=== PATIENT | female | born 1985 | race Caucasian/White ===

== ENCOUNTER → 2022-04-30 11:46 | Outpatient (CLI) | payer OTHER, SELFPAY ==
[2022-04-30 13:15] LABS: Add Manual Diff / Slide Review NO; Basophils Absolute Auto 100 /uL (0-100); Basophils Percent Auto 1.2 % (0-2); Eosinophils Absolute Auto 200 /uL (0-450); Eosinophils Percent Auto 2.2 % (2-4); Hematocrit 32.9 % (36-46); Hemoglobin 10.7 g/dL (12.0-16.0); Lymphocytes Absolute Auto 3000 /uL (1100-4500); Lymphocytes Percent Auto 33.7 % (25-40); Mean Corpuscular HGB Conc 32.5 % (30-36); Mean Corpuscular Hemoglobin 25.5 PG (26-34); Mean Corpuscular Volume 78.6 fL (80-100); Monocytes Absolute Auto 700 /uL (0-900); Neutrophils Absolute Auto 4900 /uL (1500-7000); Neutrophils Percent Auto 54.9 % (50-75); Platelet Count 361 X10^3/uL (150-400); Red Blood Cell Count 4.19 X10^6/uL (4.0-5.2); Red Cell Distribution Width 17.2 % (11.6-14.8); White Blood Cell Count 8.9 X10^3/uL (4.5-11.0)
[2022-04-30 13:16] LABS: Alanine Aminotransferase 19 IU/L (<35); Albumin 4.2 g/dL (3.5-5.0); Albumin Globulin Ratio 1.2 (1.0-2.8); Alkaline Phosphatase 76 U/L (38-126); Aspartate Aminotransferase 24 IU/L (14-36); BUN Creatinine Ratio 22.7 (6-22); Bilirubin Total 0.2 mg/dL (0.2-1.3); Blood Urea Nitrogen 15 mg/dL (7-17); Calcium 8.9 mg/dL (8.4-10.2); Carbon Dioxide 26 mmol/L (22-32); Chloride 105 mmol/L (98-107); Estimated Glomerular Filt Rate > 60 mL/min (>60); Globulin 3.4 g/dL (1.7-4.1); Glucose 86 mg/dL (70-100); HEMOLYSIS < 15 (0-50); Potassium 4.4 mmol/L (3.4-5.1); Sodium 138 mmol/L (137-145); Total Protein 7.6 g/dL (6.3-8.2)
[2022-04-30 13:46] LABS: TSH w/ Reflex to FT4 1.31 uIU/mL (0.47-4.68)
[2022-04-30 13:47] LABS: Erythrocyte Sedimentation Rate 15 MM/HR (0-20)
== END ==
PROVIDERS: PCP Family Medicine; Referring Provider Pediatrics; Visit Provider Pediatrics
DX: E66.9 Obesity, unspecified (principal); G56.03 Carpal tunnel syndrome, bilateral upper limbs; M79.641 Pain in right hand; M79.642 Pain in left hand; R53.83 Other fatigue
CPT/HCPCS: 36415; 80053; 84443; 85025; 85651

== ENCOUNTER 2022-11-12 11:18 | Emergency (ER) | payer OTHER, SELFPAY ==
[2022-11-12 12:11] VITALS: BP 155/91; PULSE 90; RESP 16; TEMP 36.3; O2SAT 96; BMI 43.2
[2022-11-12] MEDS: IBUPROFEN 400 MG TABLET 800 MG PO (13:32)
--- NOTE | 2022-11-12 13:50 | ED_ITS ---
HPI - Extremity Problem <Shekhar Lagunas PA-C - Last Filed: 11/12/22 19:46> General Chief complaint: Extremity Problem,Nontraumatic Stated complaint: sent by [facility] RT leg numb ankle to knee/pain/weaknes Time Seen by Provider: 11/12/22 12:33 Source: patient Mode of arrival: Ambulatory History of Present Illness HPI Narrative: This is a 37-year-old female presents emergency department for sciatica like symptoms for the last 2 weeks. She states that she is experiencing pain that begins in her lumbar spine and right buttock area that radiates down her right lower extremity. She denies urinary or bowel incontinence, fevers, saddle paresthesia, but does report intermittent numbness to the right anterior calf. She denies any trauma to the area. Patient states that she was sent [facility] approximately 2 weeks ago where she was given Toradol, prednisone, and muscle relaxants. She states that her pain was somewhat relieved with the prednisone. Related Data Home Medications Medication Instructions Recorded Confirmed MULTIVITAMIN (Multivitamin ##0 01/06/10 05/07/21 -) cyclobenzaprine 10 mg tablet 10 mg PO TID PRN 11/10/22 prednisone 20 mg tablet 60 mg PO DAILY 11/10/22 Previous Rx's Medication Instructions Recorded cyclobenzaprine 10 mg tablet 10 mg PO TID #20 tabs 11/12/22 cyclobenzaprine 10 mg tablet 10 mg PO TID #20 tabs 11/12/22 prednisone 20 mg tablet 20 mg PO BID 7 days #14 tabs 11/12/22 prednisone 20 mg tablet 20 mg PO BID 7 days #14 tabs 11/12/22 Allergies Allergy/AdvReac Type Severity Reaction Status Date / Time acyclovir Allergy difficulty Verified 05/07/21 15:50 breathing codeine Allergy Difficulty Verified 05/07/21 15:50 Breathing latex Allergy rash Verified 05/07/21 15:50 Sulfa (Sulfonamide AdvReac Verified 05/07/21 15:50 Antibiotics) Review of Systems <Shekhar Lagunas PA-C - Last Filed: 11/12/22 19:46> Review of Systems Narrative: GENERAL: Denies chills, fatigue, malaise, fever, sweats. HEENT: Denies sinus pain, ear pain, sore throat, difficulty swallowing, dizziness. RESPIRATORY: Denies dyspnea, cough, wheezing, hemoptysis, sputum. CARDIOVASCULAR: Denies chest pain, palpitations, orthopnea, edema, GASTROINTESTINAL: Denies nausea, vomiting, abdominal pain, diarrhea, constipation, melena. : Denies dysuria, frequency, incontinence, hematuria, urinary retention. MUSCULOSKELETAL: Right lower extremity pain SKIN: Denies rash, skin lesions, or other NEUROLOGIC: Denies weakness, headache, numbness, change in speech, confusion, seizures, incoordination. PSYCHIATRIC: No concerning psychosocial issues. 12 point review of systems is negative except for those stated above Patient History <Shekhar Lagunas PA-C - Last Filed: 11/12/22 19:46> Medical History Abnormal Pap smear of cervix (~2019) Alopecia Bilateral hand pain Carpal tunnel syndrome on both sides Fatigue Obesity Surgical History Anesthesia History of appendectomy History of section Family History Father Diabetes mellitus Hypertension Hyperlipidemia Drug use Grandfather Cancer History of heart disease Hypertension Grandmother Cancer Diabetes mellitus History of heart disease Hypertension Grandfather Cancer Grandmother Stroke Social History Smoking Status: Never smoker Smoking Status: Never smoker Substance Use Type: does not use Exam <Shekhar Lagunas PA-C - Last Filed: 11/12/22 19:46> Narrative Exam Narrative: GENERAL: Well-developed patient, in mild distress. HEAD: Atraumatic. Normocephalic. EYES: Pupils equal round and reactive. Extraocular motions intact. No scleral icterus. No injection or drainage. ENT: Nose without bleeding, purulent drainage. Throat without erythema, tonsillar hypertrophy or exudate. Airway patent. NECK: Trachea midline. Non tender EXTREMITIES: No edema or joint tenderness. BACK: Nontender without deformity or crepitance. No flank tenderness. NEURO: AOx3. SKIN: No rash or erythema of visible areas Initial Vital Signs Initial Vital Signs: Vital Signs Temperature 97.4 F L 11/12/22 12:11 Pulse Rate 90 11/12/22 12:11 Respiratory Rate 16 11/12/22 12:11 Blood Pressure 155/91 H 11/12/22 12:11 Pulse Oximetry 96 11/12/22 12:11 Oxygen Delivery Method Room Air 11/12/22 12:11 <Destinee Nunez DO - Last Filed: 11/13/22 07:45> Initial Vital Signs Initial Vital Signs: Vital Signs Temperature 97.4 F L 11/12/22 12:11 Pulse Rate 90 11/12/22 12:11 Respiratory Rate 16 11/12/22 12:11 Blood Pressure 155/91 H 11/12/22 12:11 Pulse Oximetry 96 11/12/22 12:11 Oxygen Delivery Method Room Air 11/12/22 12:11 Course <Shekhar Lagunas PA-C - Last Filed: 11/12/22 19:46> Orders Ordered: Discontinued Medications Cyclobenzaprine HCl (Cyclobenzaprine 10 Mg Tablet) 10 mg PO NOW ONE Stop: 11/12/22 13:49 Last Admin: 11/12/22 13:57 Dose: 10 mg Documented By: RIZWANA Ibuprofen (Ibuprofen 400 Mg Tablet) 800 mg PO NOW ONE Stop: 11/12/22 13:18 Last Admin: 11/12/22 13:32 Dose: 800 mg Documented By: ZAIN Prednisone (Prednisone 20 Mg Tablet) 40 mg PO NOW ONE Stop: 11/12/22 13:49 Last Admin: 11/12/22 13:57 Dose: 40 mg Documented By: RIZWANA Vital Signs Vital signs: Vital Signs - 8 hr 11/12/22 12:11 Temperature 97.4 F L Pulse Rate 90 Respiratory Rate 16 Blood Pressure 155/91 H Pulse Oximetry 96 Oxygen Delivery Method Room Air <Destinee Nunez DO - Last Filed: 11/13/22 07:45> Orders Ordered: Discontinued Medications Cyclobenzaprine HCl (Cyclobenzaprine 10 Mg Tablet) 10 mg PO NOW ONE Stop: 11/12/22 13:49 Last Admin: 11/12/22 13:57 Dose: 10 mg Documented By: RIZWANA Ibuprofen (Ibuprofen 400 Mg Tablet) 800 mg PO NOW ONE Stop: 11/12/22 13:18 Last Admin: 11/12/22 13:32 Dose: 800 mg Documented By: ZAIN Prednisone (Prednisone 20 Mg Tablet) 40 mg PO NOW ONE Stop: 11/12/22 13:49 Last Admin: 11/12/22 13:57 Dose: 40 mg Documented By: RIZWANA Vital Signs Vital signs: Vital Signs - 8 hr 11/12/22 12:11 Temperature 97.4 F L Pulse Rate 90 Respiratory Rate 16 Blood Pressure 155/91 H Pulse Oximetry 96 Oxygen Delivery Method Room Air MDM - Extremity (Nontraumatic) <Shekhar Lagunas PA-C - Last Filed: 11/12/22 19:46> Lab Data Labs: Lab Results 11/12/22 Range/Units 13:13 Urine RBC >100/hpf H (0-5/HPF) Urine WBC 1-5/hpf (0-5/HPF) Ur Squamous Epith Cells None seen (0-5/HPF) Urine Bacteria None seen (None) Ur Culture Indicated? Specimen cultured Point of Care Testing Test Results Negative Urine Dip Bedside Urine Glucose Negative Bedside Urine Bilirubin - Negative Bedside Urine Ketone - Negative Urine Specific [place] 1.030 Bedside Urine Occult Blood +++ Bedside Urine pH 5.5 Bedside Urine Protein ++ 100 Bedside Urine Urobilinogen - Negative Bedside Urine Nitrite - Negative Bedside Urine Leukocytes + 70 Esterase MDM Narrative Medical decision making narrative: MDM * differential diagnosis includes but not limited to sciatica , vertebral fracture, right lower extremity fracture, DVT, lumbar strain, spinal cord injury * Prior records reviewed: Patient was seen in the the walk-in clinic just prior to arrival and was sent here for further evaluation. * My lab interpretation: None obtained * My imgaing interpretation: None obtained * Clinical Decision Rules/Scores evaluated: None * Independent discussions with: None ED Course: This is a 37-year-old female presents to the emergency department due to a suspected sciatica. Patient does not report any saddle paresthesia, urinary or bowel incontinence, fevers, or any other concerning signs or symptoms that would necessitate further advanced imaging. Advised patient to follow up with the primary care provider at her scheduled appointment next week for possible advanced imaging. Patient will be given prednisone as she states that this helped with her previous flare-up, as well as muscle relaxants. Patient is also given ibuprofen here in the emergency department. Patient does not express any symptoms concerning for any kind of central spinal cord impingement or damage. No trauma and no need for any x-rays. Discussed possible gabapentin as well as Toradol but patient declined both. Shared Decision Making: Discussed plan with patient who is agreeable with plan for outpatient follow-up Social Considerations: Patient has not established PCP Disposition: Discharged to home <Destinee Nunez DO - Last Filed: 11/13/22 07:45> Lab Data Labs: Lab Results 11/12/22 Range/Units 13:13 Urine RBC >100/hpf H (0-5/HPF) Urine WBC 1-5/hpf (0-5/HPF) Ur Squamous Epith Cells None seen (0-5/HPF) Urine Bacteria None seen (None) Ur Culture Indicated? Specimen cultured Point of Care Testing Test Results Negative Urine Dip Bedside Urine Glucose Negative Bedside Urine Bilirubin - Negative Bedside Urine Ketone - Negative Urine Specific [place] 1.030 Bedside Urine Occult Blood +++ Bedside Urine pH 5.5 Bedside Urine Protein ++ 100 Bedside Urine Urobilinogen - Negative Bedside Urine Nitrite - Negative Bedside Urine Leukocytes + 70 Esterase Discharge Plan Departure Patient Disposition: Home Clinical Impression: Sciatica Instructions: DI for Sciatica, DI for Back Pain With Sciatica Activity Restrictions/Additional Instructions: Thank you for coming to the [facility] Emergency Department today. As we discussed I recommend that he follow up with the primary care provider as they are the best people to order any possible advanced imaging lb the best long-term people help treat your symptoms. I hope the prednisone and muscle relaxants help. I hope you feel better soon. Prescriptions: New prednisone 20 mg tablet 20 mg PO BID 7 Days Qty: 14 0RF cyclobenzaprine 10 mg tablet 10 mg PO TID Qty: 20 0RF cyclobenzaprine 10 mg tablet 10 mg PO TID Qty: 20 0RF prednisone 20 mg tablet 20 mg PO BID 7 Days Qty: 14 0RF No Action MULTIVITAMIN (Multivitamin -) Qty: 0 cyclobenzaprine 10 mg tablet 10 mg PO TID PRN prednisone 20 mg tablet 60 mg PO DAILY Referrals: Lucas Quinn MD [Primary Care Provider] - Stand Alone Forms: Patient Portal/API <Destinee Nunez, - Last Filed: 11/13/22 07:45> Cosign ED Attending Chadature Attestation: I was immediately available in the department for consultation. Documentation has been reviewed.
[2022-11-12] MEDS: CYCLOBENZAPRINE 10 MG TABLET PO (13:57)
[2022-11-12] MEDS: predniSONE 20 MG TABLET 40 MG PO (13:57)
[2022-11-12 14:09] LABS: Bacteria Urine None Seen; Culture Indicated Urine Specimen Cultured; RBC Urine >100/HPF (0-5/HPF); Squamous Epithelial Cell Urine None Seen (0-5/HPF); WBC Urine 1-5/HPF (0-5/HPF)
== END 2022-11-12 14:16 | disposition home or self-care (01) ==
PROVIDERS: Emergency Medicine; Emergency Provider Physician Assistant Medical; PCP Family Medicine
DX: M54.31 Sciatica, right side (principal)
CPT/HCPCS: 81003; 81015; 81025; 87086; 99283

== ENCOUNTER → 2022-11-17 15:26 | Outpatient (CLI) | payer OTHER, SELFPAY ==
--- NOTE | 2022-11-17 15:27 | DI.RAD.S_ITS ---
PROCEDURE: XR LUMBAR SPINE 2-3V INDICATIONS: pain, sciatica TECHNIQUE: 3 views of the lumbar spine were acquired. COMPARISON: None. FINDINGS: Bones: 5 [id number] vertebrae are present. No significant curvature of the lumbar spine. 5 mm anterolisthesis L5 on S1, possible pars defects at this level. 4 mm retrolisthesis L4 on L5. No vertebral body compression fractures. Moderate multilevel degenerative changes with disc height loss, endplate spurring, and facet arthropathy. Soft tissues: Overlying bowel gas pattern is normal. No suspicious soft tissue calcifications. IMPRESSION: Multilevel degenerative changes of the lumbar spine. Dictated by: Memo Suazo M.D. on 11/17/2022 at 19:25 Approved by: Memo Suazo M.D. on 11/17/2022 at 19:27
== END ==
PROVIDERS: PCP Family Medicine; Referring Provider Nurse Practitioner Family; Visit Provider Nurse Practitioner Family
DX: M47.816 Spondylosis without myelopathy or radiculopathy, lumbar region (principal); M54.30 Sciatica, unspecified side
CPT/HCPCS: 72100

== ENCOUNTER → 2022-11-29 14:30 | Outpatient (CLI) | payer OTHER, SELFPAY ==
--- NOTE | 2022-11-29 | DI.US.S_ITS ---
PROCEDURE: US PERIPH VENOUS LOW EXTREM RT INDICATIONS: EDEMA TECHNIQUE: Real-time imaging, as well as color and pulse Doppler interrogation, were performed of the lower extremity deep veins from the inguinal ligament to the popliteal fossa. COMPARISON: None. FINDINGS: The common femoral, femoral and popliteal veins are normally compressible, and free of intraluminal thrombus. Color and pulse Doppler demonstrate normal phasic intraluminal flow. There is normal augmentation response to distal compression maneuver. IMPRESSION: Negative for deep venous thrombosis. Dictated by: Declan Stewart M.D. on 11/30/2022 at 15:35 Approved by: Declan Stewart M.D. on 11/30/2022 at 15:35
== END ==
PROVIDERS: Family Provider Family Medicine; PCP Family Medicine; Referring Provider Family Medicine; Visit Provider Family Medicine
DX: R60.0 Localized edema (principal); I83.90 Asymptomatic varicose veins of unspecified lower extremity; R20.0 Anesthesia of skin
CPT/HCPCS: 93971

== ENCOUNTER → 2022-12-07 18:35 | Outpatient (CLI) | payer OTHER, SELFPAY ==
--- NOTE | 2022-12-07 18:37 | DI.MRI.S_ITS ---
PROCEDURE: MR LUMBAR SPINE WO CON INDICATIONS: Increasing TECHNIQUE: Noncontrast sagittal T1 spin echo and T2 fast echo, sagittal STIR, and T2 fast spin echo through the lumbar spine. In cases with scoliosis, additional coronal T2 fast spin echo may be performed. COMPARISON: None. FINDINGS: Image quality: Excellent. Alignment and Curvature: There is normal bony alignment. Bone Marrow: There is T2 intermediate signal in the inferior endplate of L3 and superior endplate of L4. Spinal Cord: Conus medullaris terminates at the L1-2 level. Visualized cord demonstrates normal signal and size. Paraspinous Soft Tissues: No paravertebral masses. T12-L1: Moderate disc height loss. L1-L2: Normal appearance. L2-L3: Normal appearance. L3-L4: Mild disc height loss. Right subarticular disc extrusion resulting in severe spinal canal narrowing. This contacts the right-sided exiting nerve at the L4-5 neural foramen. L4-L5: Broad-based disc bulge. Annular fissure. L5-S1: Broad-based disc bulge. IMPRESSION: Right subarticular disc extrusion resulting in severe spinal canal narrowing at L3-4. This contacts the right-sided exiting nerve at the L4-5 neural foramen. Dictated by: Hunter Kumar M.D. on 12/08/2022 at 9:41 Approved by: Hunter Kumar M.D. on 12/08/2022 at 9:47
== END ==
PROVIDERS: Family Provider Family Medicine; PCP Family Medicine; Referring Provider Family Medicine; Visit Provider Family Medicine
DX: M51.26 Other intervertebral disc displacement, lumbar region (principal); R60.0 Localized edema; R20.0 Anesthesia of skin; R29.898 Other symptoms and signs involving the musculoskeletal system
CPT/HCPCS: 72148

== ENCOUNTER 2022-12-08 10:30 | Outpatient (RCR) | payer OTHER, SELFPAY ==
--- NOTE | 2022-12-06 15:53 | PT.OIE ---
Current Diagnoses Sciatica, unspecified side (12/06/22) Past Medical History (Last Updated 11/29/22 @ 14:21 by Robert Robles DO) Abnormal Pap smear of cervix (~2019) Alopecia Bilateral hand pain Carpal tunnel syndrome on both sides Fatigue Leg edema, right Obesity Right leg numbness Varicose vein of leg Weakness of right lower extremity Past Surgical History (Last Reviewed 11/12/22 @ 11:17 by IVONNE Ortiz) Anesthesia History of appendectomy History of section Visit Care Team Role Provider Type Lucas Quinn MD Family Provider Physician Primary Care Provider Specialty: Family Practice Address: [address] [place] [address] Email: [email or web address] IVONNE Cowart Attending Provider Advanced Felled Seam Operator Referring Provider Specialty: Medical Address: [address] [place] [address], [facility] Email: [email or web address] Physical Therapy Initial Evaluation PT-OP-A Visit Information Start: 11/29/22 10:46 Freq: Status: Active Protocol: Document 12/06/22 16:07 [facility] (Rec: 12/06/22 17:01 [facility] [id number]) Out-Patient Physical Therapy Visit Information Visit Information Visit Type Initial Evaluation Visit Start Time 16:06 Visit Stop Time 16:49 Total Visit Minutes 43 Visit Number 1 Number of MEDICAL RECEPTION Visits 0 PT-OP-B Current Condition Start: 11/29/22 10:46 Freq: Status: Active Protocol: Document 12/06/22 16:07 [facility] (Rec: 12/06/22 17:01 [facility] [id number]) Current Condition History of Current Condition Current Complaints R leg pain History of Current Condition Pt reports mostly having leg pain and has no injury. 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 A little bit ago(about 8 weeks ago), her back went out and she rested and it got better on R side. She still had to work so was still working. It got hurt again a week later and she worked through it and took motrin then R leg pain started . What started was R leg being numb in ant med knee to ankle and has spread to a little bit post. She has pain in deep pain in ant thigh and down into ant leg and it is the wrost in ant leblanc. this is the 5th week of this. Seh is in less pain but numbness has not imrpoved. She has not had any steroids, motrin or tylenol for 4 days but today had to take a steroid. Pt got prescribed 20mg twice a day but only took it as need. She didn't take the entire weeks worth but was on round the clock tylenol and motrin. Have only had motrin once until today. Pt reports R buttocks pain. She thinks the first time her back went out was at 24 when CG then gave up CG d/t kept pulling her back. Prior to this, she would throw her back out about once a year but not constant. notes R leg is weaker and has to do stairs step to and sometimes r leg gives out. Notes she can't hyperext. Prior Treatments and Tests Xray FINDINGS: Bones: 5 [id number] vertebrae are present. No significant curvature of the lumbar spine. 5 mm anterolisthesis L5 on S1, possible pars defects at this level. 4 mm retrolisthesis L4 on L5. No vertebral body compression fractures. Moderate multilevel degenerative changes with disc height loss, endplate spurring, and facet arthropathy. Soft tissues: Overlying bowel gas pattern is normal. No suspicious soft tissue calcifications. R US for DVT: neg Has done massage: has not helped-one massage inc pain ; chiropactor: 1-2x/wk for 3 weeks and no help Treatment Goals Patient/Caregiver Goals be able to put on shoe comfortably; go up/down stairs recip w/o rail PT-OP-C Subjective Start: 11/29/22 10:46 Freq: Status: Active Protocol: Document 12/06/22 16:07 [facility] (Rec: 12/06/22 17:01 [facility] [id number]) Patient Questionnaires Lower Extremity Functional Scale LEFS Score 47/80 OP-PT Pain Assessment Location R leg pain Pain Location Details ant thigh to leblanc; R glute Description Aching Frequency Constant Radiating Location numbness ant med leblanc Variations/Patterns hard to get off ground Pain Aggravating Factors Sitting,Stair Climbing,Bending Other Pain Aggravating Factors unsure (sometimes fine, sometimes not); put on shoes Pain Alleviating Factors Heat,Medication PT-OP-D Balance Start: 11/29/22 10:46 Freq: Status: Active Protocol: Document 12/06/22 16:07 [facility] (Rec: 12/06/22 17:01 [facility] [id number]) Balance Tests Single Limb Standing Single Limb- Right lat lean w/R hip shear; 9 sec Single Limb- Left lat lean 16 sec PT-OP-F Manual Assessment Start: 11/29/22 10:46 Freq: Status: Active Protocol: Document 12/06/22 16:07 [facility] (Rec: 12/06/22 17:01 [facility] [id number]) Manual Assessments Soft Tissue Assessment Soft Tissue Mobility Assessment tenderness to R glutes, piriformis, hip flexor, quads, adductors Joint Mobility Assessment Joint Mobility Assessment R greater trochanter mild higher; R iliac crest higher PT-OP-G Mobility & Gait Start: 11/29/22 10:46 Freq: Status: Active Protocol: Document 12/06/22 16:07 [facility] (Rec: 12/06/22 17:01 [facility] [id number]) OP Gait Assessment Comments Gait Comments Rotation of pelvis R w/push off; dec R shoulder swing PT-OP-J Posture/Palpation/Skin Start: 11/29/22 10:46 Freq: Status: Active Protocol: Document 12/06/22 16:07 [facility] (Rec: 12/06/22 17:01 [facility] [id number]) Posture Evaluation [facility] Postural Classification System Erin Postural Classifications Posterior/Posterior Vertebral Compression Test 0 Elbow Flexion Test 0 Lumbar Protective Mechanism Left AP 1 Lumbar Protective Mechanism Right AP 0 Lumbar Protective Mechanism Left PA 1 Lumbar Protective Mechanism Right PA 1 Comments Posture Comments pt has excessive lordosis & inc kyphosis PT-OP-L Special Tests Start: 11/29/22 10:46 Freq: Status: Active Protocol: Document 12/06/22 16:07 [facility] (Rec: 12/06/22 17:01 [facility] [id number]) Special Tests Lumbar Spine Special Tests Straight Leg Raise Test Results positive R Slump Comments no dural tesion; B neural tension & w/L pinching and pull at L3 Other Special Tests Special Tests patellar tendon reflexs R:1 L: 1 achilles R: 1L:1 PT-OP-M Strength Start: 11/29/22 10:46 Freq: Status: Active Protocol: Document 12/06/22 16:07 [facility] (Rec: 12/06/22 17:01 [facility] [id number]) Hip Strength Hip Manual Muscle Testing Right Flexion (L2) 3+ Fair+ Extension (S1) 3 Fair Abduction 4- Good- Adduction 5 Normal External Rotation 3+ Fair+ Internal Rotation 3+ Fair+ Left Flexion (L2) 5 Normal Extension (S1) 5 Normal Abduction 4+ Good+ Adduction 5 Normal External Rotation 5 Normal Internal Rotation 5 Normal Knee Strength Knee Manual Muscle Testing Right Flexion (S2) 4- Good- Extension (L3) 4- Good- Left Flexion (S2) 5 Normal Extension (L3) 5 Normal Ankle/Foot Strength Ankle and Foot Manual Muscle Testing Right Dorsiflexion (L4) 5 Normal Plantarflexion (S1) 4+ Good+ Comments 16 heel raises but major calf soreness Left Dorsiflexion (L4) 5 Normal Plantarflexion (S1) 5 Normal Comments 20 heel raises PT-OP-Q Treatments Start: 11/29/22 10:46 Freq: Status: Active Protocol: Document 12/06/22 16:07 [facility] (Rec: 12/06/22 17:01 [facility] [id number]) Therapeutic Exercises Supine Exercises breathing Supine Exercise Name diaphragmatic Reps/Minutes 5 pelvic tilt Reps/Minutes 5 Self-Care/Home Management Treatment Education Patient Education Home Exercise Program Other Education 9 min: discussed what the exercises are for and educated pt on performance w/PT demo. Pt educated on dermatome map and PT informed pt that pt has MRI that was ordered so it would be good to get that completed to have a more complete picture of her spine. Edu of how PT can help and discussed posture. PT-OP-T Assessment and Plan Start: 11/29/22 10:46 Freq: Status: Active Protocol: Document 12/06/22 16:07 [facility] (Rec: 12/06/22 17:01 [facility] [id number]) Physical Therapy Assessment Rehab Potential Rehabilitation Potential Good Evaluation Complexity Number of Personal Factors/Comorbidities 3 or More Number of Body Systems Impaired 4 or More Clinical Presentation at Evaluation Evolving Impairments Impairments Activity Tolerance,Balance, Functional Activities, Functional Mobility,Gait,Pain, Posture,ROM,Soft Tissue Mobility,Strength Goals posture Short Term Goal (STG) Pt will score at least 2/5 on VCT to show improved postural alignment. STG Duration 01/20/23 Rn Otolaryngology Goal (LTG) Pt will score at least 4/5 on VCT to show improved postural alignment. LTG Duration 02/28/23 strength Short Term Goal (STG) Pt will be indep w/stretching, blance and strength HEP STG Duration 01/20/23 Detention Goal (LTG) Pt will score at least 4+/5 w/ all MMT and at least 3/5 LPM & EFT in order to show improved stability to inc pt ability to participate in her typical day w/o inc pain. LTG Duration 02/28/23 activties Short Term Goal (STG) Pt will be able to don/doff shoes w/o inc pain or difficulty. STG Duration 01/20/23 Rn Otolaryngology Goal (LTG) Pt will be able to ascend and descend stairs reciprocally while carrying things as needed for job LTG Duration 02/28/23 LEFS Impairment 47/80 Short Term Goal (STG) Pt will improve score to at least 58/80 to show improved functional ability. STG Duration 01/20/23 Detention Goal (LTG) Pt will improve score to at least 68/80 to show improved functional ability. LTG Duration 02/28/23 Assessment Summary Assessment Pt presents with R ant med leg pain that goes to her ankle and R glute pain with numbness in ant lower leg. She had an xray showing anterolisthesis of 5mm of L5 on S1 and retrolisthesis 4m on L4-L5 w/ some disc height loss and degenerative changes but is awaiting a MRI. She has history of back injuries for over 10 years having back go out once a year or so d/t her jobs. 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 She has noted dec pain overall, but numbness has not changed. She has significant RLE weakness w /notable difficulty bending to put on shoes and weakness w/ stairs. Pt does have notable neural tension w/Slump and SLR testing and notes changes around L3-4 dermatome pattern. MRI will give further information re: pt condition and pt may require referral to other specialists. She does have significant lordosis and poor core stabilty and would benefit from skilled PT to imrpove alignment and posture along w/stability in order to improve pt movement patterns to dec pain. Physical Therapy Plan Frequency and Duration Frequency of Treatment 2x/wk 3wk; 1x/wk 9wk Duration of treatment (weeks) 12 Plan of Care Start Date 12/06/22 Plan of Care End Date 02/28/23 Therapeutic Interventions Therapeutic Interventions Balance Training,Gait Training ,Home Exercise Program,Joint Mobilizations,Manual Therapy, Neuromuscular Re-education, Patient/Caregiver Education, Self-Care/Home Management,Soft Tissue Mobilization,Taping, Therapeutic Activities, Therapeutic Exercises Next Visit Focus/Plan Next Note Type Treatment Note Next Visit Plan lumbar ROM testing; hip jt mobs, innominate mobs & sacral mobs, STM to glutes & LEs, HEP: review exercises, hip stretches prn, tennis ball to glutes & rolling pin to quads, supine marches & BKFOs
--- NOTE | 2022-12-06 17:53 | PT.OPPOC ---
Physical, Occupational & Speech Therapy At [facility] Current Diagnoses Sciatica, unspecified side (12/06/22) Visit Care Team Role Provider Type Lucas Quinn MD Family Provider Physician Primary Care Provider Specialty: Family Practice Address: [address] [place] [address], [id number] Email: [email or web address] Cowart Attending Provider Advanced Cookie Mixer Helper Referring Provider Specialty: Medical Address: [address] [place] [address], [id number] Email: [email or web address] Plan Of Care PT-OP-T Assessment and Plan Start: 11/29/22 10:46 Freq: Status: Active Protocol: Document 12/06/22 16:07 [facility] (Rec: 12/06/22 17:01 [facility] [id number]) Physical Therapy Assessment Rehab Potential Rehabilitation Potential Good Evaluation Complexity Number of Personal Factors/Comorbidities 3 or More Number of Body Systems Impaired 4 or More Clinical Presentation at Evaluation Evolving Impairments Impairments Activity Tolerance,Balance, Functional Activities, Functional Mobility,Gait,Pain, Posture,ROM,Soft Tissue Mobility,Strength Goals posture Short Term Goal (STG) Pt will score at least 2/5 [address] VCT to show improved postural alignment. STG Duration 01/20/23 Associate Financial Analyst Goal (LTG) Pt will score at least 4/5 on VCT to show improved postural alignment. LTG Duration 02/28/23 strength Short Term Goal (STG) Pt will be indep w/stretching, blance and strength HEP STG Duration 01/20/23 Associate Financial Analyst Goal (LTG) Pt will score at least 4+/5 w/ all MMT and at least 3/5 LPM & EFT in order to show improved stability to inc pt ability to participate in her typical day w/o inc pain. LTG Duration 02/28/23 activties Short Term Goal (STG) Pt will be able to don/doff shoes w/o inc pain or difficulty. STG Duration 01/20/23 Halfway Goal (LTG) Pt will be able to ascend and descend stairs reciprocally while carrying things as needed for job LTG Duration 02/28/23 LEFS Impairment 47/80 Short Term Goal (STG) Pt will improve score to at least 58/80 to show improved functional ability. STG Duration 01/20/23 Halfway Goal (LTG) Pt will improve score to at least 68/80 to show improved functional ability. LTG Duration 02/28/23 Assessment Summary Assessment Pt presents with R ant med leg pain that goes to her ankle and R glute pain with numbness in ant lower leg. She had an xray showing anterolisthesis of 5mm of L5 on S1 and retrolisthesis 4m on L4-L5 w/ some disc height loss and degenerative changes but is awaiting a MRI. She has history of back injuries for over 10 years having back go out once a year or so d/t her jobs. 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 She has noted dec pain overall, but numbness has not changed. She has significant RLE weakness w /notable difficulty bending to put on shoes and weakness w/ stairs. Pt does have notable neural tension w/Slump and SLR testing and notes changes around L3-4 dermatome pattern. MRI will give further information re: pt condition and pt may require referral to other specialists. She does have significant lordosis and poor core stabilty and would benefit from skilled PT to imrpove alignment and posture along w/stability in order to improve pt movement patterns to dec pain. Physical Therapy Plan Frequency and Duration Frequency of Treatment 2x/wk 3wk; 1x/wk 9wk Duration of treatment (weeks) 12 Plan of Care Start Date 12/06/22 Plan of Care End Date 02/28/23 Therapeutic Interventions Therapeutic Interventions Balance Training,Gait Training ,Home Exercise Program,Joint Mobilizations,Manual Therapy, Neuromuscular Re-education, Patient/Caregiver Education, Self-Care/Home Management,Soft Tissue Mobilization,Taping, Therapeutic Activities, Therapeutic Exercises Next Visit Focus/Plan Next Note Type Treatment Note Next Visit Plan lumbar ROM testing; hip jt mobs, innominate mobs & sacral mobs, STM to glutes & LEs, HEP: review exercises, hip stretches prn, tennis ball to glutes & rolling pin to quads, supine marches & BKFOs Plan of Care Dates Plan of Care Start Date 12/06/22 Plan of Care End Date 02/28/23 Electronically Signed by: Mirta Reddy, PT 12/07/22 0634 If you are in agreement with this Plan of Care, please return a signed and dated copy. I have reviewed this Plan of Care and certify that the skilled therapy services above are required to meet the patient?s needs. Physician Signature Date Printed Name and Credentials Clinical Instructor Signature Printed Name and Credentials
--- NOTE | 2022-12-08 11:21 | PT.OTN ---
Current Diagnoses Sciatica, unspecified side (12/08/22) Physical Therapy Treatment Note PT-OP-A Visit Information Start: 11/29/22 10:46 Freq: Status: Active Protocol: Document 12/08/22 10:33 [facility] (Rec: 12/08/22 11:20 [facility] [id number]) Out-Patient Physical Therapy Visit Information Visit Information Visit Type Treatment Note Visit Start Time 10:37 Visit Stop Time 11:15 Total Visit Minutes 38 Visit Number 2 Number of MULTIMEDIA DEVELOPER Visits 0 PT-OP-B Current Condition Start: 11/29/22 10:46 Freq: Status: Active Protocol: Document 12/06/22 16:07 [facility] (Rec: 12/06/22 17:01 [facility] [id number]) Current Condition History of Current Condition Current Complaints R leg pain History of Current Condition Pt reports mostly having leg pain and has no injury. 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 A little bit ago(about 8 weeks ago), her back went out and she rested and it got better on R side. She still had to work so was still working. It got hurt again a week later and she worked through it and took motrin then R leg pain started . What started was R leg being numb in ant med knee to ankle and has spread to a little bit post. She has pain in deep pain in ant thigh and down into ant leg and it is the wrost in ant leblanc. this is the 5th week of this. Seh is in less pain but numbness has not imrpoved. She has not had any steroids, motrin or tylenol for 4 days but today had to take a steroid. Pt got prescribed 20mg twice a day but only took it as need. She didn't take the entire weeks worth but was on round the clock tylenol and motrin. Have only had motrin once until today. Pt reports R buttocks pain. She thinks the first time her back went out was at 24 when CG then gave up CG d/t kept pulling her back. Prior to this, she would throw her back out about once a year but not constant. notes R leg is weaker and has to do stairs step to and sometimes r leg gives out. Notes she can't hyperext. Prior Treatments and Tests Xray FINDINGS: Bones: 5 [id number] vertebrae are present. No significant curvature of the lumbar spine. 5 mm anterolisthesis L5 on S1, possible pars defects at this level. 4 mm retrolisthesis L4 on L5. No vertebral body compression fractures. Moderate multilevel degenerative changes with disc height loss, endplate spurring, and facet arthropathy. Soft tissues: Overlying bowel gas pattern is normal. No suspicious soft tissue calcifications. R US for DVT: neg Has done massage: has not helped-one massage inc pain ; chiropactor: 1-2x/wk for 3 weeks and no help Treatment Goals Patient/Caregiver Goals be able to put on shoe comfortably; go up/down stairs recip w/o rail PT-OP-C Subjective Start: 11/29/22 10:46 Freq: Status: Active Protocol: Document 12/08/22 10:33 [facility] (Rec: 12/08/22 11:20 [facility] [id number]) OP-PT Subjective Patient Comments Patient Comments Pt reports exercises feel okay . Had MRI last night PT-OP-D Balance Start: 11/29/22 10:46 Freq: Status: Active Protocol: Document 12/06/22 16:07 [facility] (Rec: 12/06/22 17:01 [facility] [id number]) Balance Tests Single Limb Standing Single Limb- Right lat lean w/R hip shear; 9 sec Single Limb- Left lat lean 16 sec PT-OP-F Manual Assessment Start: 11/29/22 10:46 Freq: Status: Active Protocol: Document 12/06/22 16:07 [facility] (Rec: 12/06/22 17:01 [facility] [id number]) Manual Assessments Soft Tissue Assessment Soft Tissue Mobility Assessment tenderness to R glutes, piriformis, hip flexor, quads, adductors Joint Mobility Assessment Joint Mobility Assessment R greater trochanter mild higher; R iliac crest higher PT-OP-G Mobility & Gait Start: 11/29/22 10:46 Freq: Status: Active Protocol: Document 12/06/22 16:07 [facility] (Rec: 12/06/22 17:01 [facility] [id number]) OP Gait Assessment Comments Gait Comments Rotation of pelvis R w/push off; dec R shoulder swing PT-OP-J Posture/Palpation/Skin Start: 11/29/22 10:46 Freq: Status: Active Protocol: Document 12/06/22 16:07 [facility] (Rec: 12/06/22 17:01 [facility] [id number]) Posture Evaluation Erin Postural Classification System Erin Postural Classifications Posterior/Posterior Vertebral Compression Test 0 Elbow Flexion Test 0 Lumbar Protective Mechanism Left AP 1 Lumbar Protective Mechanism Right AP 0 Lumbar Protective Mechanism Left PA 1 Lumbar Protective Mechanism Right PA 1 Comments Posture Comments pt has excessive lordosis & inc kyphosis PT-OP-L Special Tests Start: 11/29/22 10:46 Freq: Status: Active Protocol: Document 12/06/22 16:07 [facility] (Rec: 12/06/22 17:01 [facility] [id number]) Special Tests Lumbar Spine Special Tests Straight Leg Raise Test Results positive R Slump Comments no dural tesion; B neural tension & w/L pinching and pull at L3 Other Special Tests Special Tests patellar tendon reflexs R:1 L: 1 achilles R: 1L:1 PT-OP-M Strength Start: 11/29/22 10:46 Freq: Status: Active Protocol: Document 12/06/22 16:07 [facility] (Rec: 12/06/22 17:01 [facility] [id number]) Hip Strength Hip Manual Muscle Testing Right Flexion (L2) 3+ Fair+ Extension (S1) 3 Fair Abduction 4- Good- Adduction 5 Normal External Rotation 3+ Fair+ Internal Rotation 3+ Fair+ Left Flexion (L2) 5 Normal Extension (S1) 5 Normal Abduction 4+ Good+ Adduction 5 Normal External Rotation 5 Normal Internal Rotation 5 Normal Knee Strength Knee Manual Muscle Testing Right Flexion (S2) 4- Good- Extension (L3) 4- Good- Left Flexion (S2) 5 Normal Extension (L3) 5 Normal Ankle/Foot Strength Ankle and Foot Manual Muscle Testing Right Dorsiflexion (L4) 5 Normal Plantarflexion (S1) 4+ Good+ Comments 16 heel raises but major calf soreness Left Dorsiflexion (L4) 5 Normal Plantarflexion (S1) 5 Normal Comments 20 heel raises PT-OP-Q Treatments Start: 11/29/22 10:46 Freq: Status: Active Protocol: Document 12/08/22 10:33 [facility] (Rec: 12/08/22 11:20 [facility] [id number]) Therapeutic Exercises Supine Exercises core Supine Exercise Name 1. Alt october 2. BKFO Side bilateral Reps/Minutes 15 ea Comments Tabd Standing Exercises wall posture Standing Exercise Name mult roll ups progressed Reps/Minutes 7 min Therapeutic Activity Therapeutic Activity posture Reps/Minutes 10 min Comments 1. seated unsupported posture set up and edu 2. standing posture and set up w/cues Self-Care/Home Management Treatment Education Other Education 8 min: edu to gradually try biking w/5 min first and gradually inc as long as painfree. Go light w/this. Edu she can try elliptical after this again lightly; pt shown how to roll out w/tennis ball and rolling pin PT-OP-T Assessment and Plan Start: 11/29/22 10:46 Freq: Status: Active Protocol: Document 12/08/22 10:33 [facility] (Rec: 12/08/22 11:20 [facility] [id number]) Physical Therapy Assessment Goals posture Short Term Goal (STG) Pt will score at least 2/5 on VCT to show improved postural alignment. STG Duration 01/20/23 Group Home Goal (LTG) Pt will score at least 4/5 on VCT to show improved postural alignment. LTG Duration 02/28/23 strength Short Term Goal (STG) Pt will be indep w/stretching, blance and strength HEP STG Duration 01/20/23 Group Home Goal (LTG) Pt will score at least 4+/5 w/ all MMT and at least 3/5 LPM & EFT in order to show improved stability to inc pt ability to participate in her typical day w/o inc pain. LTG Duration 02/28/23 activties Short Term Goal (STG) Pt will be able to don/doff shoes w/o inc pain or difficulty. STG Duration 01/20/23 Group Home Goal (LTG) Pt will be able to ascend and descend stairs reciprocally while carrying things as needed for job LTG Duration 02/28/23 LEFS Impairment 47/80 Short Term Goal (STG) Pt will improve score to at least 58/80 to show improved functional ability. STG Duration 01/20/23 Hoop Punch And Coiler Operator Goal (LTG) Pt will improve score to at least 68/80 to show improved functional ability. LTG Duration 02/28/23 Assessment Summary Assessment Pt required a lot of cues w/ posture and a lot of education for positiong w/exercises. She is very receptive thoguh and did well by the end of each activity. She was given HEP to start. Physical Therapy Plan Frequency and Duration Frequency of Treatment 2x/wk 3wk; 1x/wk 9wk Duration of treatment (weeks) 12 Plan of Care Start Date 12/06/22 Plan of Care End Date 02/28/23 Next Visit Focus/Plan Next Note Type Treatment Note Next Visit Plan lumbar ROM testing; hip jt mobs, innominate mobs & sacral mobs, STM to glutes & LEs, review HEP: review exercises, tennis ball to glutes & rolling pin to quads, supine marches & BKFOs
--- NOTE | 2022-12-20 14:50 | PT-OP ANOTE ---
Addendum entered and electronically signed by Geena Winn PTA 12/20/22 15:03: Pt did not show for today's appt. Original Note: CORE MACHINE TENDER called pt and she stated meant to call and cancel today's appt. Saw surgeon and a referral has been placed for approval for surgery. She wants her 12/23 PT appt cancelled until hear back from surgeon on recommendation of PT at this time. She will call to update us before 01/05 appt with PT.
--- NOTE | 2023-02-21 07:50 | PT.OPDS ---
Current Diagnoses Sciatica, unspecified side (12/08/22) Visit Care Team Role Provider Type Lucas Quinn MD Family Provider Physician Primary Care Provider Specialty: Family Practice Address: [address] [place] [address], [id number] Email: [email or web address] Cowart Attending Provider Advanced [employer] Helper Referring Provider Specialty: Medical Address: [address] [place] [address], [id number] Email: [email or web address] Visit Number Visit Number 2 Discharge Summary PT-OP-B Current Condition Start: 11/29/22 10:46 Freq: Status: Active Protocol: Document 12/06/22 16:07 [facility] (Rec: 12/06/22 17:01 [facility] [id number]) Current Condition History of Current Condition Current Complaints R leg pain History of Current Condition Pt reports mostly having leg pain and has no injury. 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 A little bit ago(about 8 weeks ago), her back went out and she rested and it got better on R side. She still had to work so was still working. It got hurt again a week later and she worked through it and took motrin then R leg pain started . What started was R leg being numb in ant med knee to ankle and has spread to a little bit post. She has pain in deep pain in ant thigh and down into ant leg and it is the wrost in ant leblanc. this is the 5th week of this. Seh is in less pain but numbness has not imrpoved. She has not had any steroids, motrin or tylenol for 4 days but today had to take a steroid. Pt got prescribed 20mg twice a day but only took it as need. She didn't take the entire weeks worth but was on round the clock tylenol and motrin. Have only had motrin once until today. Pt reports R buttocks pain. She thinks the first time her back went out was at 24 when CG then gave up CG d/t kept pulling her back. Prior to this, she would throw her back out about once a year but not constant. notes R leg is weaker and has to do stairs step to and sometimes r leg gives out. Notes she can't hyperext. Prior Treatments and Tests Xray FINDINGS: Bones: 5 [id number] vertebrae are present. No significant curvature of the lumbar spine. 5 mm anterolisthesis L5 on S1, possible pars defects at this level. 4 mm retrolisthesis L4 on L5. No vertebral body compression fractures. Moderate multilevel degenerative changes with disc height loss, endplate spurring, and facet arthropathy. Soft tissues: Overlying bowel gas pattern is normal. No suspicious soft tissue calcifications. R US for DVT: neg Has done massage: has not helped-[employer] pain ; chiropactor: 1-2x/wk for 3 weeks and no help Treatment Goals Patient/Caregiver Goals be able to put on shoe comfortably; go up/down stairs recip w/o rail PT-OP-C Subjective Start: 11/29/22 10:46 Freq: Status: Active Protocol: Document 12/08/22 10:33 [facility] (Rec: 12/08/22 11:20 [facility] [id number]) OP-PT Subjective Patient Comments Patient Comments Pt reports exercises feel okay . Had MRI last night PT-OP-D Balance Start: 11/29/22 10:46 Freq: Status: Active Protocol: Document 12/06/22 16:07 [facility] (Rec: 12/06/22 17:01 [facility] [id number]) Balance Tests Single Limb Standing Single Limb- Right lat lean w/R hip shear; 9 sec Single Limb- Left lat lean 16 sec PT-OP-F Manual Assessment Start: 11/29/22 10:46 Freq: Status: Active Protocol: Document 12/06/22 16:07 [facility] (Rec: 12/06/22 17:01 [facility] [id number]) Manual Assessments Soft Tissue Assessment Soft Tissue Mobility Assessment tenderness to R glutes, piriformis, hip flexor, quads, adductors Joint Mobility Assessment Joint Mobility Assessment R greater trochanter mild higher; R iliac crest higher PT-OP-G Mobility & Gait Start: 11/29/22 10:46 Freq: Status: Active Protocol: Document 12/06/22 16:07 [facility] (Rec: 12/06/22 17:01 [facility] [id number]) OP Gait Assessment Comments Gait Comments Rotation of pelvis R w/push off; dec R shoulder swing PT-OP-J Posture/Palpation/Skin Start: 11/29/22 10:46 Freq: Status: Active Protocol: Document 12/06/22 16:07 [facility] (Rec: 12/06/22 17:01 [facility] [id number]) Posture Evaluation [facility] Postural Classification System Rein Postural Classifications Posterior/Posterior Vertebral Compression Test 0 Elbow Flexion Test 0 Lumbar Protective Mechanism Left AP 1 Lumbar Protective Mechanism Right AP 0 Lumbar Protective Mechanism Left PA 1 Lumbar Protective Mechanism Right PA 1 Comments Posture Comments pt has excessive lordosis & inc kyphosis PT-OP-L Special Tests Start: 11/29/22 10:46 Freq: Status: Active Protocol: Document 12/06/22 16:07 [facility] (Rec: 12/06/22 17:01 [facility] [id number]) Special Tests Lumbar Spine Special Tests Straight Leg Raise Test Results positive R Slump Comments no dural tesion; B neural tension & w/L pinching and pull at L3 Other Special Tests Special Tests patellar tendon reflexs R:1 L: 1 achilles R: 1L:1 PT-OP-M Strength Start: 11/29/22 10:46 Freq: Status: Active Protocol: Document 12/06/22 16:07 [facility] (Rec: 12/06/22 17:01 [facility] [id number]) Hip Strength Hip Manual Muscle Testing Right Flexion (L2) 3+ Fair+ Extension (S1) 3 Fair Abduction 4- Good- Adduction 5 Normal External Rotation 3+ Fair+ Internal Rotation 3+ Fair+ Left Flexion (L2) 5 Normal Extension (S1) 5 Normal Abduction 4+ Good+ Adduction 5 Normal External Rotation 5 Normal Internal Rotation 5 Normal Knee Strength Knee Manual Muscle Testing Right Flexion (S2) 4- Good- Extension (L3) 4- Good- Left Flexion (S2) 5 Normal Extension (L3) 5 Normal Ankle/Foot Strength Ankle and Foot Manual Muscle Testing Right Dorsiflexion (L4) 5 Normal Plantarflexion (S1) 4+ Good+ Comments 16 heel raises but major calf soreness Left Dorsiflexion (L4) 5 Normal Plantarflexion (S1) 5 Normal Comments 20 heel raises PT-OP-T Assessment and Plan Start: 11/29/22 10:46 Freq: Status: Active Protocol: Document 02/21/23 07:49 [facility] (Rec: 02/21/23 07:50 [facility] [id number]) Physical Therapy Assessment Assessment Summary Assessment Pt saw ortho and was set up for surgery. DC d/t plan for surgery and pt has not been seen since December 08. Physical Therapy Plan Discharge Physical Therapy Discharge Reasons Change in Medical Status
== END 2023-04-01 15:34 ==
LOC: PHYS 10:30
PROVIDERS: Absent Provider Family Medicine; Family Provider Family Medicine; PCP Family Medicine; Referring Provider Nurse Practitioner Family; Visit Provider Nurse Practitioner Family
DX: M54.30 Sciatica, unspecified side (principal)
CPT/HCPCS: 97110; 97162; 97530; 97535

== ENCOUNTER → 2022-12-30 09:55 | Outpatient (CLI) | payer OTHER, SELFPAY ==
[2022-12-30 11:24] LABS: Add Manual Diff / Slide Review NO; Basophils Absolute Auto 100 /uL (0-100); Basophils Percent Auto 1.3 % (0-2); Eosinophils Absolute Auto 200 /uL (0-450); Eosinophils Percent Auto 2.2 % (2-4); Hematocrit 35.7 % (36-46); Hemoglobin 11.7 g/dL (12.0-16.0); Lymphocytes Absolute Auto 2600 /uL (1100-4500); Lymphocytes Percent Auto 28.5 % (25-40); Mean Corpuscular HGB Conc 32.8 % (30-36); Mean Corpuscular Hemoglobin 26.2 PG (26-34); Mean Corpuscular Volume 79.9 fL (80-100); Monocytes Absolute Auto 700 /uL (0-900); Monocytes Percent Auto 7.3 % (3-14); Neutrophils Absolute Auto 5600 /uL (1500-7000); Neutrophils Percent Auto 60.7 % (50-75); Platelet Count 323 X10^3/uL (150-400); Red Blood Cell Count 4.47 X10^6/uL (4.0-5.2); Red Cell Distribution Width 16.1 % (11.6-14.8); White Blood Cell Count 9.3 X10^3/uL (4.5-11.0)
[2022-12-30 11:30] LABS: Alanine Aminotransferase 23 IU/L (<35); Albumin 4.3 g/dL (3.5-5.0); Albumin Globulin Ratio 1.4 (1.0-2.8); Alkaline Phosphatase 76 U/L (38-126); Aspartate Aminotransferase 24 IU/L (14-36); BUN Creatinine Ratio 21.3 (6-22); Bilirubin Total 0.2 mg/dL (0.2-1.3); Blood Urea Nitrogen 13 mg/dL (7-17); Calcium 8.6 mg/dL (8.4-10.2); Carbon Dioxide 26 mmol/L (22-32); Chloride 104 mmol/L (98-107); Estimated Glomerular Filt Rate > 60 mL/min (>60); Glucose 97 mg/dL (70-100); HEMOLYSIS < 15 (0-50); Sodium 137 mmol/L (137-145); Total Protein 7.3 g/dL (6.3-8.2)
[2022-12-30 11:45] LABS: HEMOLYSIS 30 (0-50); Iron 59 ug/dL (37-170)
[2022-12-30 11:56] LABS: Percent Iron Saturation 12 % (15-50); Total Iron Binding Capacity 489 ug/dL (265-497); Transferrin 367 mg/dL (206-381)
[2022-12-30 12:04] LABS: Ferritin 7 ng/mL (6-137)
== END ==
PROVIDERS: Family Provider Family Medicine; PCP Family Medicine; Referring Provider Orthopaedic Surgery Orthopaedic Surgery of the Spine; Visit Provider Orthopaedic Surgery Orthopaedic Surgery of the Spine
DX: Z01.812 Encounter for preprocedural laboratory examination (principal); D50.9 Iron deficiency anemia, unspecified; E66.9 Obesity, unspecified; M48.062 Spinal stenosis, lumbar region with neurogenic claudication; R53.83 Other fatigue
CPT/HCPCS: 36415; 80053; 82728; 83540; 83550; 85025

== ENCOUNTER 2023-01-10 06:37 | Day surgery (SDC) | payer OTHER, SELFPAY ==
[2023-01-05 14:49] VITALS: BMI 44.6
[2023-01-10] VITALS (7 sets, daily range): BP systolic 123–155; BP diastolic 66–96; PULSE 70–90; RESP 14–19; TEMP 36.2–36.3; O2SAT 95–100; BMI 42.4
--- NOTE | 2023-01-10 07:38 | PM.PREOP ---
Pre-operative Note COVID-19 Criteria for continued procedure: Expected advancement of disease process, Possibility delay results in more complex future surgery or treatment, Increased loss of function, Continuing or worsening of significant or severe pain, Deterioration of the patient's condition or overall health and Delay expected to result in less-positive ultimate med/surg outcome Interval Note History & Physical reviewed/Exam performed by Physician: Yes Changes to H&P: No
[2023-01-10] MEDS: LACTATED RINGERS 1,000 ML 42 ML IV ×2 (07:40→09:10)
[2023-01-10] MEDS: CEFAZOLIN 2 GM/100 ML PREMIX 100 ML IV (08:00)
--- NOTE | 2023-01-10 08:15 | SUR.OPER ---
Prone on spine table, head in foam head support, padded chest and pelvic supports, gel pad at knees, lower legs supported by pillows; nipples, genitalia and toes free of pressure, arms secured on foam padded arm boards at <90 degrees abduction. Tape over blanket at thigh secured to table.
[2023-01-10] MEDS: methylPREDNISolone acet DEPO 40 MG/ML VIAL INJ (08:26)
[2023-01-10] MEDS: BUPIVACAINE 0.25% (PF) VIAL 10 ML INJ (08:35)
--- NOTE | 2023-01-10 08:42 | DI.RAD.S_ITS ---
PROCEDURE: XR LUMBAR SPINE 2-3V INDICATIONS: L3-4 MICRODISECTOMY TECHNIQUE: 2 views of the lumbar spine were acquired. COMPARISON: [facility], CR, XR LUMBAR SPINE 2-3V, 11/17/2022, 15:24. FINDINGS/IMPRESSION: Intraoperative images were obtained for L3-L4 micro discectomy. Please see operative note for full details. Dictated by: Josh Costa M.D. on 01/10/2023 at 11:20 Approved by: Josh Costa M.D. on 01/10/2023 at 11:20
--- NOTE | 2023-01-10 09:20 | P.OP_ITS ---
Operative Date/Time/Diagnoses Date of procedure: 01/10/23 Time of procedure: 07:40 Pre-op diagnosis: 1. L3-4 disc herniation 2. L3-4 spinal stenosis Post-op diagnosis: same Procedure & Clinicians Procedure: 1. L3-4 right microdiscectomy 2. Utilization of microsurgical technique and operating microscope Same procedure as scheduled: Yes Indications: Patient has been having chronic back pain and worsening lumbar radiculopathy. Patient failed multiple conservative management with worsening pain weakness and numbness in her lower extremity. Patient has been having difficulty performing activity of daily living. After discussing risks benefits of treatment options, patient elected proceed with surgery. Surgeon: Mela Wood Projection Technician: Tammy Caldwell Click Yes if Unassisted: No Anesthesia Type: General Operative Notes Closure Type: primary Specimen(s): none sent Estimated Blood Loss (mL): 5 Blood products transfused: none Procedure in detail: Patient was seen in the preoperative area. Risks and benefits of the surgery was discussed with the patient. Informed consent was obtained from the patient and placed in the chart. Surgical site was marked. Patient was taken to the operative room. General anesthesia was administered. Prophylactic antibiotic was given to the patient less than 30 min before the incision was made. Patient was placed into a prone position on the Klaus table. Patient's back was then prepped and draped in the sterile fashion. Time-out was performed at this time. Using AP and lateral C-arm imaging the interval between L3-4 was identified and marked on patient's back. A 1 inch incision 1 in from midline was made on the right side. The fascia was incised in line with skin incision. Globus MARS retractors was placed inside the incision and docked onto the L3 lamina. Using microsurgical technique and operating microscope, a L3 laminotomy was performed using a Kerrison rongeur. Liagamentum flavum was resected at the site of the laminotomy. The disc space at L3-4 was identified. Microdiscectomy was performed by incising the annulus with #11 blade. Microcurettes and pituitary was used to removed herniated disc fragments of disc from the epidural space. After the microdiskectomy was completed, the area medial lateral superior and inferior to the area of the microdiskectomy was inspected and explored using a micro curette. No other impinging structure was identified. The wound was then irrigated with sterile normal saline. 40 mg Depo-Medrol was placed into the epidural space. The deep fascia was closed with 1-0 Vicryl. The subcutaneous tissue was closed with 2-0 Vicryl. The skin was closed with skin izabel. Patient tolerated the procedure well. There were no complications. Patient was transferred recovery room in stable condition. Complications: none Post-operative Condition: stable Disposition: PACU Plan for aftercare: Discharge to home
[2023-01-10] MEDS: METOCLOPRAMIDE 10 MG/2 ML INJ IV (09:42)
[2023-01-10] MEDS: hydrOXYzine pamoate 25 MG CAPSULE 50 MG PO (09:48)
--- NOTE | 2023-01-10 10:20 | SUR.PHASEII ---
Ambulated to BR. Dressed and IV D/C'd. all belongings and Rx sent with patient.
== END 2023-01-10 10:24 | disposition home or self-care (01) ==
PROVIDERS: Family Provider Family Medicine; PCP Family Medicine; Referring Provider Orthopaedic Surgery Orthopaedic Surgery of the Spine; Visit Provider Orthopaedic Surgery Orthopaedic Surgery of the Spine
PROC: (CPT 63030; principal; 2023-01-10 07:45)
DX: M51.16 Intervertebral disc disorders with radiculopathy, lumbar region (principal); M48.061 Spinal stenosis, lumbar region without neurogenic claudication
CPT/HCPCS: 63030; 72100; 76000; J0330; J0690; J1030; J1100; J1170; J2250; J2405; J2704; J2765; J3010; J3490

== ENCOUNTER → 2023-02-03 10:19 | Outpatient (CLI) | payer OTHER, SELFPAY ==
[2023-02-03 12:29] LABS: Urine N gonorrhoeae NOT DETECTED
[2023-02-03 12:50] LABS: Urine Chlamydia NOT DETECTED
[2023-02-03 16:30] LABS: HIV 1 & 2 Ab/Ag 4th Gen Combo NEGATIVE (NEGATIVE)
[2023-02-04 06:03] LABS: HBsAg Screen Negative (Negative); Hepatitis A Antibody IgM Negative (Negative); Hepatitis B Core Antibody IgM Negative (Negative); Hepatitis C Antibody Non Reactive (Non Reactive)
[2023-02-07 17:06] LABS: RPR Screen Non Reactive (Non Reactive)
== END ==
PROVIDERS: Family Provider Family Medicine; PCP Family Medicine; Referring Provider Family Medicine; Visit Provider Family Medicine
DX: F43.20 Adjustment disorder, unspecified (principal); Z72.51 High risk heterosexual behavior
CPT/HCPCS: 36415; 80074; 86592; 87389; 87491; 87591

== ENCOUNTER 2023-02-24 09:11 | Emergency (ER) | payer OTHER, SELFPAY ==
[2023-02-24 09:18] VITALS: BP 134/80; PULSE 83; RESP 18; TEMP 36.6; O2SAT 96; BMI 39.9
--- NOTE | 2023-02-24 09:25 | ED.BACK ---
HPI - Back Pain/Injury General Chief Complaint: Back Pain/Injury Stated Complaint: post op T-6 weeks feel on Tuesday Time Seen by Provider: 02/24/23 09:19 Source: patient History of Present Illness HPI Narrative: 37F nonsmoker with history of spinal stenosis and recent lumbar diskectomy about 6 weeks ago for right-sided radicular symptoms presents with a chief complaint of left lower extremity pain. She states that a few days ago she had a ground level fall and landed directly on her butt. In the aftermath she is had low back pain and radiation down her left leg. She has some lateral numbness but denies any weakness. She denies any loss of control of bowel or bladder. She denies fever chills and takes no blood thinners. Related Data Home Medications Medication Instructions Recorded Confirmed MULTIVITAMIN (Multivitamin 1 tab PO ##0 01/06/10 01/28/23 -) acetaminophen 500 mg tablet 500 mg PO Q6H PRN Pain (Scale 11/17/22 01/28/23 (Tylenol Extra Strength) Score 4-6) Previous Rx's Medication Instructions Recorded cyclobenzaprine 10 mg tablet 10 mg PO BID PRN muscle spasm #30 11/23/22 tabs ibuprofen 200 mg tablet 600 mg PO BID PRN pain #60 tabs 11/23/22 ferrous sulfate 324 mg (65 mg 324 mg PO DAILY #90 tabs 12/31/22 iron) tablet,delayed release cyclobenzaprine 10 mg tablet 10 mg PO TID PRN muscle spasm #14 02/24/23 tabs gabapentin 300 mg capsule 300 mg PO BEDTIME #14 caps 02/24/23 hydromorphone 2 mg tablet 2 mg PO Q4-6H PRN pain #14 tabs 02/24/23 (Dilaudid) ketorolac 10 mg tablet 10 mg PO Q6H PRN pain #14 tabs 02/24/23 methylprednisolone 4 mg tablets in See Rx Instructions PO .COMPLEX 02/24/23 a dose pack (Medrol (Rodriguez)) #21 ea Allergies Allergy/AdvReac Type Severity Reaction Status Date / Time acyclovir Allergy difficulty Verified 02/24/23 09:23 breathing codeine Allergy Difficulty Verified 02/24/23 09:23 Breathing hydrocodone Allergy Difficulty Verified 02/24/23 09:23 Breathing latex Allergy rash Verified 07/06/23 09:23 oxycodone Allergy Difficulty Verified 02/24/23 09:23 Breathing Sulfa (Sulfonamide AdvReac Verified 02/24/23 09:23 Antibiotics) Review of Systems Review of Systems Narrative: GENERAL: Denies chills, fatigue, malaise, fever, sweats. HEENT: Denies sinus pain, ear pain, sore throat, difficulty swallowing, dizziness. RESPIRATORY: Denies dyspnea, cough, wheezing, hemoptysis, sputum. CARDIOVASCULAR: Denies chest pain, palpitations, orthopnea, edema, GASTROINTESTINAL: Denies nausea, vomiting, abdominal pain, diarrhea, constipation, melena. : Denies dysuria, frequency, incontinence, hematuria, urinary retention. MUSCULOSKELETAL: See HPI SKIN: Denies rash, skin lesions, or other NEUROLOGIC: See HPI PSYCHIATRIC: No concerning psychosocial issues. 12 point review of systems is negative except for those stated above Patient History Medical History Abnormal Pap smear of cervix (~2019) Alopecia Bilateral hand pain Carpal tunnel syndrome on both sides Fatigue Leg edema, right Obesity Right leg numbness Spinal stenosis, lumbar region with neurogenic claudication Varicose vein of leg Weakness of right lower extremity Surgical History Anesthesia History of appendectomy History of section Family History Father Diabetes mellitus Hypertension Hyperlipidemia Drug use Grandfather Cancer History of heart disease Hypertension Grandmother Cancer Diabetes mellitus History of heart disease Hypertension Grandfather Cancer Grandmother Stroke Social History household members: children Smoking Status: Never smoker alcohol intake: current Smoking Status: Never smoker alcohol intake frequency: holidays/special occasions only Substance Use Type: does not use Exam Narrative Exam Narrative: GENERAL: [37] year old patient appears stated age. Well-developed patient, in moderate distress, obviously in pain, required some assistance getting out of the truck into a wheelchair but did so under her own power though admittedly with pain HEAD: Atraumatic. Normocephalic. EYES: Pupils equal round and reactive. Extraocular motions intact. No scleral icterus. No injection or drainage. ENT: Nose without bleeding, purulent drainage. Throat without erythema, tonsillar hypertrophy or exudate. Airway patent. NECK: Trachea midline. Non tender CARDIOVASCULAR: Regular rate and rhythm without murmurs, gallops, or rubs. RESPIRATORY: Clear to auscultation. Breath sounds equal bilaterally. No wheezes, rales, or rhonchi. GASTROINTESTINAL: Abdomen soft, non-tender, nondistended. EXTREMITIES: No edema or joint tenderness. BACK: black oxide coating equipment tender but free of any obvious external abnormalities. Patient exam notes decreased range of motion and muscle spasm, but no CVA tenderness, or vertebral point tenderness. There are no symptoms of cauda equina such as saddle anesthesia, and decreased reflexes, decreased sensation or strength. NEURO: AOx3. SKIN: No rash or erythema of visible areas Initial Vital Signs Initial Vital Signs: Vital Signs Temperature 97.8 F 02/24/23 09:18 Pulse Rate 83 02/24/23 09:18 Respiratory Rate 18 02/24/23 09:18 Blood Pressure 134/80 02/24/23 09:18 Pulse Oximetry 96 02/24/23 09:18 Oxygen Delivery Method Room Air 02/24/23 09:18 Course Orders Ordered: ED Orders 02/24/23 09:26 XR lumbar spine 2-3V Stat Discontinued Medications Gabapentin (Gabapentin 300 Mg Capsule) 300 mg PO NOW ONE Stop: 02/24/23 09:49 Last Admin: 02/24/23 10:05 Dose: 300 mg Documented By: SPF Hydromorphone HCl (Hydromorphone 1 Mg Inj) 1 mg IM NOW ONE Stop: 02/24/23 10:49 Last Admin: 02/24/23 10:56 Dose: 1 mg Documented By: NR Prednisone (Prednisone 20 Mg Tablet) 40 mg PO NOW ONE Stop: 02/24/23 09:49 Last Admin: 02/24/23 10:05 Dose: 40 mg Documented By: SPF Consultations Consultation #1: Discussed with Dr. Wood (patient surgeon) Requests L spine xrays. No need to come to appointment today. Requests steroids and gabapentin and follow up in a week or so. Typical return precautions including worsening pain, weakness, loss of bowel/bladder Vital Signs Vital signs: Vital Signs - 8 hr 02/24/23 09:18 Temperature 97.8 F Pulse Rate 83 Respiratory Rate 18 Blood Pressure 134/80 Pulse Oximetry 96 Oxygen Delivery Method Room Air MDM - Back Pain/Injury MDM Narrative Medical decision making narrative: [37] year old patient presents with fall with lumbar pain and left-sided radicular symptoms Multiple etiologies for patient's symptoms considered including, but not limited to: [Fracture versus dislocation versus other radiculopathy] Prior Charts reviewed in our EMR Primary Historian: patient Imaging reviewed: Xray without fracture or dislocation Consultations: discussed with Dr. Wood (see details above) Patient's symptoms improved over duration of stay with above-stated therapies. Findings and discharge diagnosis discussed with patient/family followed by verbalization of understanding Return precautions discussed with patient/family whom verbalize understanding of diagnosis and plan Discharge Plan Departure Patient Disposition: Home Clinical Impression: Acute left lumbar radiculopathy Instructions: DI for Lumbar Radiculopathy Prescriptions: New cyclobenzaprine 10 mg tablet 10 mg PO TID PRN (Reason: muscle spasm) Qty: 14 0RF ketorolac 10 mg tablet 10 mg PO Q6H PRN (Reason: pain) Qty: 14 0RF gabapentin 300 mg capsule 300 mg PO BEDTIME Qty: 14 0RF methylprednisolone [Medrol (Rodriguez)] 4 mg tablets,dose pack See Rx Instructions .ROUTE .COMPLEX Qty: 21 0RF Rx Instructions: orally per package directions hydromorphone [Dilaudid] 2 mg tablet 2 mg PO Q4-6H PRN (Reason: pain) Qty: 14 0RF No Action MULTIVITAMIN (Multivitamin -) 1 tab PO Qty: 0 cyclobenzaprine 10 mg tablet 10 mg PO BID PRN (Reason: muscle spasm) Qty: 30 0RF Rx Instructions: may make drowsy, do not drive ibuprofen 200 mg tablet 600 mg PO BID PRN (Reason: pain) Qty: 60 0RF ferrous sulfate 324 mg (65 mg iron) tablet,delayed release (DR/EC) 324 mg PO DAILY Qty: 90 1RF acetaminophen [Tylenol Extra Strength] 500 mg tablet 500 mg PO Q6H PRN (Reason: Pain (Scale Score 4-6)) Referrals: Lucas Quinn MD [Primary Care Provider] - Mela Wood MD [Physician] - Stand Alone Forms: Patient Portal/API
--- NOTE | 2023-02-24 09:26 | DI.RAD.S_ITS ---
PROCEDURE: XR LUMBAR SPINE 2-3V INDICATIONS: fall with low back pain, recent lumbar surgery TECHNIQUE: 3 views of the lumbar spine were acquired. COMPARISON: [facility], MR, MR LUMBAR SPINE WO CON, 12/07/2022, 18:47. [facility], CR, XR LUMBAR SPINE 2-3V, 11/17/2022, 15:24. [facility], CR, XR LUMBAR SPINE 2-3V, 01/10/2023, 8:11. FINDINGS: Bones: 5 wvk-jhs-kmeitez vertebrae are present. There is normal bony alignment. No vertebral body compression fractures. Lower lumbar facet arthropathy. No suspicious bony lesions. Soft tissues: Overlying bowel gas pattern is normal. No suspicious soft tissue calcifications. IMPRESSION: No acute bony abnormality. Dictated by: César Tate M.D. on 02/24/2023 at 10:30 Approved by: César Tate M.D. on 02/24/2023 at 10:34
[2023-02-24] MEDS: GABAPENTIN 300 MG CAPSULE PO (10:05)
[2023-02-24] MEDS: predniSONE 20 MG TABLET 40 MG PO (10:05)
[2023-02-24] MEDS: HYDROMORPHONE 1 MG INJ IM (10:56)
== END 2023-02-24 11:02 | disposition home or self-care (01) ==
PROVIDERS: Emergency Provider Emergency Medicine; Family Provider Family Medicine; PCP Family Medicine
DX: M54.16 Radiculopathy, lumbar region (principal)
CPT/HCPCS: 72100; 96372; 99283; J1170

== ENCOUNTER → 2023-03-02 16:19 | Outpatient (CLI) | payer OTHER, SELFPAY ==
--- NOTE | 2023-03-02 | DI.MRI.S_ITS ---
PROCEDURE: MR LUMBAR SPINE WO CON INDICATIONS: intervertebral disc displacement, lumbar region TECHNIQUE: Noncontrast sagittal T1 spin echo and T2 fast echo, sagittal STIR, and T2 fast spin echo through the lumbar spine. In cases with scoliosis, additional coronal T2 fast spin echo may be performed. COMPARISON: [facility], MR, MR LUMBAR SPINE WO CON, 12/07/2022, 18:47. [facility], CR, XR LUMBAR SPINE 2-3V, 01/10/2023, 8:11. [facility], CR, XR LUMBAR SPINE 2-3V, 02/24/2023, 9:41. FINDINGS: Image quality: Excellent. Alignment and Curvature: Mild levoconvex scoliotic curvature is noted. Bone Marrow: Marrow is of normal overall signal. No acute vertebral body compression fractures. Spinal Cord: Conus medullaris terminates at the L1 level. Visualized cord demonstrates normal signal and size. Paraspinous Soft Tissues: No paravertebral masses. T12-L1: At least moderate loss of disc height and disc signal can be seen. Bridging anterior osteophytes are seen. Mild generalized disc bulge is seen. No neural foraminal narrowing or central canal narrowing can be seen. Stable from the prior study. L1-L2: Normal appearance. L2-L3: Normal appearance. L3-L4: Qwki-ge-waijjgnm loss of disc height and disc signal can be seen. Reactive marrow endplate changes are seen, which demonstrate mixed T1 weighted and T2-weighted signal, and are attributed to a combination of edema and fatty metaplasia (Modic type I and Modic type II changes). Moderate disc bulge is seen, with a significant central/left disc extrusion, with superior and inferior migration of the disc material. The extruded disc material measures at least 2.7 cm craniocaudal. There is at least moderate bilateral neural foraminal narrowing seen. Severe central canal narrowing is seen at this level. The left-sided disc extrusion is considered to be new. The right-sided disc extrusion is mildly improved compared to the prior. L4-L5: The disc height is well-preserved. Loss of disc signal is seen at this level. Mild to moderate disc bulge is seen, with a central disc protrusion. There is a focal annular fissure seen posteriorly. Mild to moderate facet hypertrophy can be seen. Moderate bilateral neural foraminal narrowing is seen. Mild central canal narrowing is seen. When comparison is made with the prior images, these findings are similar. L5-S1: The disc height is well-preserved. Loss of disc signal is seen at this level. Mild generalized disc bulge is seen. Mild facet joint hypertrophy is seen. There is pgqh-yn-wvwzuyde right-sided and moderate left-sided neural foraminal narrowing. No significant central canal narrowing is seen. When comparison is made with the prior images, these findings are similar. IMPRESSION: At the L3-L4 level, there is now seen a LEFT-sided disc extrusion, with a prominent degree of extruded disc material and severe central canal narrowing. The previously seen RIGHT L3-L4 disc extrusion appears slightly improved compared to the prior. Dictated by: Declan Stewart M.D. on 03/02/2023 at 16:25 Approved by: Declan Stewart M.D. on 03/02/2023 at 16:30
== END ==
PROVIDERS: Family Provider Family Medicine; PCP Family Medicine; Referring Provider Orthopaedic Surgery Orthopaedic Surgery of the Spine; Visit Provider Orthopaedic Surgery Orthopaedic Surgery of the Spine
DX: M51.26 Other intervertebral disc displacement, lumbar region (principal); M48.061 Spinal stenosis, lumbar region without neurogenic claudication
CPT/HCPCS: 72148

== ENCOUNTER 2023-03-07 13:26 | Inpatient (IN) | payer OTHER, SELFPAY ==
[2023-03-07] VITALS (14 sets, daily range): BP systolic 119–155; BP diastolic 64–84; PULSE 71–86; RESP 10–19; TEMP 36.2–37.2; O2SAT 96–100; BMI 40.6
--- NOTE | 2023-03-07 14:00 | PM.HP.1 ---
History of Present Illness History of Present Illness Date Patient Seen: 03/07/23 Time Patient Seen: 14:00 Date of Onset of Symptoms: 02/15/23 Chief complaint: leg pain and weakness Narrative: Ms. Rader is a 37 yo F who is about 6 weeks post L3-4 microdiscectomy surgery. Patient has been pain free until 2 weeks ago. Patient felt acute onset of severe pain radiating down her leg similar to prior to surgery. Patient developed leg weakenss and constant numbness to her feet since 2 weeks ago. A urgent MRI was performed and shows a large recurrent L3-4 disc herniation causing severe spinal stenosis. After discussing risks and benefits of tratment options, patient elected to proceed with surgery treatment urgently. [facility] Medical History Abnormal Pap smear of cervix (~2018) Alopecia Bilateral hand pain Carpal tunnel syndrome on both sides Fatigue Leg edema, right Obesity Right leg numbness Spinal stenosis, lumbar region with neurogenic claudication Varicose vein of leg Weakness of right lower extremity Surgical History Anesthesia History of appendectomy History of section Hx of microdiscectomy (01/10/23) Family History Father Diabetes mellitus Hypertension Hyperlipidemia Drug use Grandfather Cancer History of heart disease Hypertension Grandmother Cancer Diabetes mellitus History of heart disease Hypertension Grandfather Cancer Grandmother Stroke Social History household members: children Smoking Status: Never smoker alcohol intake: current Meds Home Medications and Allergies Home Medications Medication Instructions Recorded Confirmed Type MULTIVITAMIN (Multivitamin 1 tab PO ##0 01/06/10 01/28/23 History -) acetaminophen 500 mg tablet 500 mg PO Q6H PRN Pain (Scale 11/17/22 03/07/23 History (Tylenol Extra Strength) Score 4-6) cyclobenzaprine 10 mg tablet 10 mg PO BID PRN muscle spasm #30 11/23/22 03/07/23 Rx tabs ibuprofen 200 mg tablet 600 mg PO BID PRN pain #60 tabs 11/23/22 03/07/23 Rx ferrous sulfate 324 mg (65 mg 324 mg PO DAILY #90 tabs 12/31/22 03/07/23 Rx iron) tablet,delayed release cyclobenzaprine 10 mg tablet 10 mg PO TID PRN muscle spasm #14 02/24/23 03/07/23 Rx tabs gabapentin 300 mg capsule 300 mg PO BEDTIME #14 caps 02/24/23 03/07/23 Rx hydromorphone 2 mg tablet 2 mg PO Q4-6H PRN pain #14 tabs 02/24/23 03/07/23 Rx (Dilaudid) methylprednisolone 4 mg tablets in See Rx Instructions PO .COMPLEX 02/24/23 03/07/23 Rx a dose pack (Medrol (Rodriguez)) #21 ea Allergies Allergy/AdvReac Type Severity Reaction Status Date / Time acyclovir Allergy difficulty Verified 02/24/23 09:23 breathing codeine Allergy Difficulty Verified 02/24/23 09:23 Breathing hydrocodone Allergy Difficulty Verified 02/24/23 09:23 Breathing latex Allergy rash Verified 02/24/23 09:23 oxycodone Allergy Difficulty Verified 02/24/23 09:23 Breathing Sulfa (Sulfonamide AdvReac Verified 02/24/23 09:23 Antibiotics) Review of Systems Review of Systems ROS: Yes All systems reviewed with the patient and are negative except as otherwise documented Exam Back/Spine/Pelvis Other: painful ROM of lumbar with worsening radiating pain with flexion. Skin General: no rashes or lesions noted Neuro Other: + straight leg raise to RLE, sensibility decreased to R L3, L4, L5 dermatome, motor strength 4/5 in right quadriceps, TA. Assessment & Plan Assessment & Plan narrative: Risks for surgery was discussed. Due to the recurrent nature of the L3-4 disc with severe spinal stenosis, patient will require laminecmies, total facetecomies and total discectomies, which will render her L3-4 level grossly unstable and will require a fusion procedure at the same time. Risks for surgery include but not limited to bleeding, infection, nerve/dura/bladder/bowel/blood vessel injury, need for additional procedure, even . Patient understands and would like to proceed with surgery. I scheduled her for L3-4 TLIF.
[2023-03-07] MEDS: LACTATED RINGERS 1,000 ML 84 ML IV (14:11)
[2023-03-07] MEDS: SCOPOLAMINE 1 PATCH TOP (14:12)
[2023-03-07 14:25] LABS: Hematocrit 38.5 % (36-46); Hemoglobin 12.3 g/dL (12.0-16.0); Mean Corpuscular Hemoglobin 25.5 PG (26-34); Mean Corpuscular Volume 79.6 fL (80-100); Platelet Count 319 X10^3/uL (150-400); Red Blood Cell Count 4.83 X10^6/uL (4.0-5.2); Red Cell Distribution Width 17.6 % (11.6-14.8); White Blood Cell Count 9.1 X10^3/uL (4.5-11.0)
[2023-03-07] MEDS: CEFAZOLIN 2 GM/100 ML PREMIX 100 ML IV ×2 (14:35→21:41)
[2023-03-07] MEDS: BUPIVACAINE LIPOSOME 266 MG/20 ML VIAL INJ (16:01)
[2023-03-07] MEDS: BUPIVACAINE 0.25% (PF) 60 ML, EPINEPHrine 0.15 MG INJ (16:02)
--- NOTE | 2023-03-07 16:42 | P.OP_ITS ---
Operative Date/Time/Diagnoses Date of procedure: 03/07/23 Time of procedure: 14:00 Pre-op diagnosis: 1. L3-4 recurrent disc herniation 2. L3-4 spinal stenosis with neurogenic claudication Post-op diagnosis: same Procedure & Clinicians Procedure: 1. L3-4 Postero-lateral and posterior interbody fusion 2. L3-4 interbody cage placement. 3. L3-4 decompressive laminectomy with bilateral facetecomies 4. L3-4 Posterior non-segmental instrumentation 5. Montgomery of bone marrow from iliac crest 6. Utilization of microsurgical technique and operating microscope Same procedure as scheduled: Yes Indications: Patient has been having acute worsening back pain and worsening lumbar radiculopathy with paresthesias to her entire right foot and no drop foot to her right lower extremity developed 2 weeks ago. Patient is 6 weeks status post L3- 4 microdiskectomy and has been pain-free for the last 1 month. Patient has new symptoms was developed after a fall. Urgent MRI was obtained which showed a large recurrent disc herniation L3-4 level with severe central spinal stenosis. Patient has symptoms of neurogenic claudication and acute onset right-sided drop foot along with radiculopathy to both sides. Patient has been having difficulty performing activity of daily living. After discussing risks benefits of treatment options, patient elected proceed with surgery urgently. Surgeon: Mela Wood Didactic Instructor: Tammy Caldwell Click Yes if Unassisted: Yes Anesthesia Type: General Operative Notes Closure Type: primary Specimen(s): none sent Prosthetic devices, grafts, tissues, transplants, or devices: Globus revolve screws, Rise cage Estimated Blood Loss (mL): 50 Blood products transfused: none Procedure in detail: Patient was seen in the preoperative area. Risks and benefits of the surgery was discussed with the patient. Informed consent was obtained from the patient and placed in the chart. Surgical site was marked. Patient was taken to the operative room. General anesthesia was administered. Prophylactic antibiotic was given to the patient less than 30 min before the incision was made. Patient was placed into a prone position on the Klaus table. Patient's back was then prepped and draped in the sterile fashion. Time-out was performed at this time. Using AP and lateral C-arm imaging the interval between L3-4 was identified and marked on patient's back. A 2 inch incision 2 in from midline was made on the right side first. The fascia was incised in line with skin incision. Globus MARS retractors was placed inside the incision and docked onto the L3 lamina. Using microsurgical technique and operating microscope, a L3 laminectomy and L3- 4 facetectomy was performed using a Kerrison rongeur. The laminectomy and facetectomy was performed in order to decompress patient's cauda equina as well as the nerve roots exiting at the L3-4 level. There were 2 large extruded disc fragments in the epidural space compressing on the exiting nerve roots as well as the thecal sac. The diskectomy along with facetectomy and laminectomy fully decompress the lateral recess and the central spinal canal at L3-4 level. The disc space at L3-4 was identified. And a total diskectomy was performed at L3-4 level. The endplates were decorticated using a rasp and shaver. The total diskectomy and decortication was performed at L3-4 level in order to to accomplish a L3-4 fusion. The local bone from the laminectomy and facetectomy was saved for local bone grafting. After the total diskectomy and decortication was completed, Trifecta bone graft material was combined with local bone that was harvested earlier. At this time, a separate skin is incision was made over the iliac crest. A Jamshidi needle was inserted into the iliac crest through a separate skin incision. 5 cc of bone marrow aspiration was obtained through the separate skin incision using a Jamshidi needle from the iliac crest. The bone marrow aspiration was combined with local bone and the Trifecta bone grafting material. The bone grafting material was placed into the L3-4 interbody space along with a expandable cage. The cage was expanded to its maximum height using the torque limiting screwdriver. At this time a mirror image incision was made on the left side. The fascia was incised in line with the skin incision. Globus MARS retractor was inserted and docked onto the L3-4 posterolateral gutter. Using the power drill, posterior- lateral decortication was performed at L3-4 level until bleeding cortical bone was identified. The remaining bone grafting material was placed into the L3-4 posterior lateral gutter he order to accomplish posterolateral fusion at the L3- 4 level. Using the double C-arm technique, pedicle screws were placed into the L3-4 pedicles bilaterally. This was done by placing the Jamshidi needle into the pedicles, then placing the guidewires over the Jamshidi needle, and finally placing the cannulated screws over the guidewires bilaterally. After the pedicle screws were placed, 2 titanium rods was locked into the heads of the pedicle screws using locking caps and torque limiting screwdriver. After all the hardware was placed, and confirmed with AP and lateral C-arm imaging, the wound was then irrigated with sterile normal saline and packed with Ray-Phong gauze for 3 min to accomplish hemostasis. After the gauze was removed the deep fascia was closed with #1 Vicryl suture. The subcutaneous layer was closed with 2-0 Vicryl. The skin was closed with skin izabel. Patient tolerated the procedure well. There were no complications. The Operation could not have been safely performed without compromising the technical result or length of the procedure, without the assistance of a skilled surgical garment assembly supervisor. The surgical garment assembly supervisor was medically necessary for proper positioning, retraction and manipulation of instruments, proper exposure, surgical preparation, and manipulation of tissue. Complications: none Post-operative Condition: stable Disposition: PACU Plan for aftercare: Admit to inpatient hospital
--- NOTE | 2023-03-07 17:00 | DI.RAD.S_ITS ---
PROCEDURE: XR LUMBAR SPINE 2-3V INDICATIONS: L3-4 TLIF TECHNIQUE: 3 views of the lumbar spine were acquired. COMPARISON: [facility], MR, MR LUMBAR SPINE WO CON, 03/02/2023, 16:40. [facility], CR, XR LUMBAR SPINE 2-3V, 02/24/2023, 9:41. FINDINGS: 2 intraoperative fluoroscopy images demonstrate discectomy and posterior fusion at L3-L4. IMPRESSION: Discectomy and posterior fusion at L3-L4. Dictated by: Ema Beckford M.D. on 03/07/2023 at 18:04 Approved by: Ema Beckford M.D. on 03/07/2023 at 18:05
[2023-03-07] MEDS: HYDROMORPHONE 2 MG INJ IV ×4 (17:08→17:24)
[2023-03-07] MEDS: LACTATED RINGERS 1,000 ML 125 ML IV (18:07)
[2023-03-07] MEDS: ACETAMINOPHEN 325 MG TABLET 650 MG PO (18:16)
[2023-03-07] MEDS: DOCUSATE 100 MG CAPSULE PO (21:42)
[2023-03-07] MEDS: GABAPENTIN 300 MG CAPSULE PO (21:42)
[2023-03-07] MEDS: SENNOSIDES 8.6 MG TABLET 17.2 MG PO (21:42)
[2023-03-07] MEDS: HYDROMORPHONE 2 MG TABLET PO (22:28)
[2023-03-07] MEDS: CYCLOBENZAPRINE 10 MG TABLET PO (23:19)
[2023-03-08] MEDS: HYDROMORPHONE 2 MG TABLET PO ×6 (03:40→23:18)
[2023-03-08] MEDS: ACETAMINOPHEN 325 MG TABLET 650 MG PO ×3 (03:40→22:23)
[2023-03-08] MEDS: CEFAZOLIN 2 GM/100 ML PREMIX 100 ML IV (05:54)
[2023-03-08] MEDS: hydrOXYzine pamoate 25 MG CAPSULE PO ×2 (06:27→11:47)
[2023-03-08] MEDS: CYCLOBENZAPRINE 10 MG TABLET PO ×3 (07:51→19:19)
[2023-03-08] MEDS: DOCUSATE 100 MG CAPSULE PO ×2 (08:28→22:23)
[2023-03-08] MEDS: FERROUS SULFATE 325 MG TABLET PO (08:28)
[2023-03-08] MEDS: polyethylene glycoL 3350 17 GM POWD.PACK PO (08:28)
[2023-03-08 08:56] VITALS: BP 134/80; PULSE 77; RESP 16; TEMP 36.3; O2SAT 100
--- NOTE | 2023-03-08 09:05 | OT.IP.EVAL ---
Current Diagnoses Spinal stenosis, lumbar region with neurogenic claudication (03/07/23) Other intervertebral disc displacement, lumbar region (03/07/23) Surgery Performed Operation Date: 03/07/23 15:15 Actual Procedures p L3-4 TLIF - Mela Wood MD Past Medical History (Last Reviewed 03/08/23 @ 10:42 by Robert Dinero PA-C) Abnormal Pap smear of cervix (~2019) Alopecia Bilateral hand pain Carpal tunnel syndrome on both sides Fatigue Leg edema, right Obesity Right leg numbness Spinal stenosis, lumbar region with neurogenic claudication Varicose vein of leg Weakness of right lower extremity Surgical History (Last Reviewed 03/08/23 @ 10:42 by Robert Dinero PA-C) Anesthesia History of appendectomy History of section Hx of microdiscectomy (01/10/23) Occupational Therapy Inpatient Evaluation/Re-Eval M1 PT/OT-IP Prior Functional Status Start: 03/08/23 11:45 Freq: NEEDED Status: Active Protocol: Document 03/08/23 09:00 [facility] (Rec: 03/08/23 11:57 [facility] [id number]) Medical Review Prior Functional Status Communication independent Mobility and Gait Pt states recent needing to use a scooter for grocery shopping needs. Activities of Daily Living and IADL's Pt states now having trouble with getting her shoes on due to decreased movement in her right foot. Social History Household Members children Living Arrangements House Number of Stairs To Enter/Railing? Pt has a ramp to enter the house. Home Environment Standard Height Toilet,Walk in Shower Home Equipment Hand Held Shower,Grab Bars In Shower Additional Social History Comment Pt has a built in shower chair . Pt has her 7 and 11 year old daughters to help for part of the week. Pt's mother to come and stay with her to assist until Tuesday. M2 OT-IP Current Condition Start: 03/08/23 11:45 Freq: Status: Active Protocol: Document 03/08/23 09:00 [facility] (Rec: 03/08/23 11:57 [facility] [id number]) Occupational Therapy Current Condition Current Condition Evaluation Date 03/08/23 Treatment Diagnosis S/p L3-4 TLIF Diagnosis Onset Date 03/07/23 Post Operative Precautions Lumbar Precautions Log Roll,No Twisting,Limit Bending,Lifting Restriction of 10 lbs,Gait Belt above Incisional Area M3 OT- IP Subjective and Pain Start: 03/08/23 11:45 Freq: Status: Active Protocol: Document 03/08/23 09:00 [facility] (Rec: 03/08/23 11:57 [facility] [id number]) OT- Subjective Occupational Therapy Visit Type Type Initial Evaluation Visit Start Time 09:05 Visit Stop Time 09:43 Total Visit Minutes 38 Occupational Therapy Visit Comments Patient Comments Pt agreed to get up. Patient/Caregiver Goals To get better and go home. OT Pain Assessment Pain When Pain Assessed At Rest Pain Present Pain Present Pain Reported Location Back Intensity 3 Scale Used Numeric (0 - 10) M4 OT- IP ADL's Start: 03/08/23 11:45 Freq: Status: Active Protocol: Document 03/08/23 09:00 [facility] (Rec: 03/08/23 11:57 [facility] [id number]) OT [id number] General Evaluation Self-Feeding Ability Independent OT ADL-Grooming Comments OT Grooming Comments Not performed. OT ADL-Oral Care Comments Oral Care Comments Educated best to spit into a cup or hinge at her hips to best follow her back precautions. OT ADL-Dressing General Eval Lower Body Dressing Ability Maximum Assistance Comments OT Dressing Comments Able to show pt use of beam dyer and sock aid for LB dressing needs. Pt states her daughters to assist her and also her mom. OT ADL-Toileting Comments OT Toileting Comments Pt not having to go at this time. Pt states her mother assist her for the week and had to assist to wipe her after her L3-4 microdiscectomy 6 weeks ago. OT ADL-Bathing Comments OT Bathing Comments NOt performed M5 OT- IP IADL's Start: 03/08/23 11:45 Freq: Status: Active Protocol: Document 03/08/23 09:00 [facility] (Rec: 03/08/23 11:57 [facility] [id number]) OT-Instrumental Activities of Daily Living Deficits IADL Deficits Identified Deficits Home Safety Awareness Awareness of Need for Assistance at Home Good Awareness Home Safety Comments At this time due to decreased balance and weakness, pt will need her mother to assist her for her ADL and mobility needs . M6 OT- IP Functional Cognition Start: 03/08/23 11:45 Freq: Status: Active Protocol: Document 03/08/23 09:00 [facility] (Rec: 03/08/23 11:57 [facility] [id number]) Cognitive Factors Limiting Selfcare Function Cognitive Ability Level of Alertness Alert Patient Orientation Name,Place,Situation Attention Span Ability Capable of Focused Attention, Capable of Sustained Attention Ability to Follow Commands Able to Follow One Step Commands Safety Awareness Decreased Ability to Apply Precautions Cognitive Comments Cognitive Assessment Comments Pt able to states her back precautions but having difficulty to incorporate during bed mobility due to her pain. Pt will need continuous practice to be able to incorporate her back precautions for her needs. OT- Vision and Hearing OT- Hearing Assessment OT- Hearing Assessment WFL OT- Vision Assessment Visual Acuity WFL M7 OT- IP Mobility and Balance Start: 03/08/23 11:45 Freq: Status: Active Protocol: Document 03/08/23 09:00 [facility] (Rec: 03/08/23 11:57 [facility] [id number]) OT- Bed Mobility Assessment Scooting Scooting to Edge of Bed Moderate Assistance OT-Transfer Assessment Sit to and From Stand Sit to and from Stand Moderate Assistance Transfers Transfer Ability Minimal Assistance,Moderate Assistance Technique Transfer Destination Bed,Chair Transfer Technique Stand Step Pivot Devices Transfer Assistive Devices Gait Belt,Front Wheeled Walker OT- Balance Assessment Sitting Balance and Reactions Static Sitting Balance Ability Good Dynamic Sitting Balance Ability Fair Standing Balance and Reactions Static Standing Balance Ability Fair Dynamic Standing Balance Ability Poor M9 OT- IP Assessment and Plan Start: 03/08/23 11:45 Freq: Status: Active Protocol: Document 03/08/23 09:00 [facility] (Rec: 03/08/23 11:57 [facility] [id number]) OT Summary Assessment and Plan Potential Rehabilitation Potential Good Analytic Complexity at Evaluation Low Summary OT Impairments Pain,Balance,Functional Mobility,Grooming,Dressing, Toileting,Bathing,Toilet Transfers,Shower Transfers, Activity Tolerance Progress Towards Goals Slow Progress due to Pain,Slow Progress due to Activity Tolerance Assessment Summary Pt low complexity and main barrier are pain , decreased balance, and activity tolerance. Pt having great difficulty for transitions especially for scooting. Pending caregiver training, pt may benefit from short rehab stay versus home with assist. Goals Self-Feeding Goal Independent Grooming Goal Independent Dressing Goal Independent,Minimal Assistance Toileting Goal Minimal Assistance Bathing Goal Minimal Assistance Toilet Transfer Goal Independent Shower Transfer Goal Standby Assistance Days to Meet Goals 38 Frequency of Treatment Frequency Of Treatment Once a Day Treatment Plan OT Treatment Plan ADL Training,Functional Mobility,Patient/Family Education,Discharge Planning Discharge Recommendations OT Discharge Recommendations Home with 24/ Assist Available,Home Health,SNF Rehab Transportation Needs at Discharge Private Vehicle
--- NOTE | 2023-03-08 10:39 | PM.PNPO.1 ---
Subjective Subjective Date Patient Seen: 03/08/23 Time Patient Seen: 10:40 Interval history: Pain is moderate to severe. Notes right lower extremity weakness prior to surgery. No fever or chills. No nausea or vomiting. Patient states she lives alone. Exam Vital Signs (past 8 hours): Oxygen Delivery Method Room Air Oxygen Flow Rate 0 Narrative Exam Narrative: 37-year-old female resting comfortably in bedside chair in no apparent distress. Sensation diminished to light touch right lower extremity. Diminished right quad strength is well as dorsiflexion, plantar flexion, great toe extension. Const General: cooperative and comfortable Nutritional Appearance: well nourished Orientation: alert Resp Effort & Inspection: normal respiratory effort and able to speak in complete sentences Objective Labs 03/07/23 14:05 Labs: Laboratory Results - last 24 hr 03/07/23 14:05 WBC 9.1 RBC 4.83 Hgb 12.3 Hct 38.5 MCV 79.6 L MCH 25.5 L MCHC 32.0 RDW 17.6 H Plt Count 319 PFSH Medical History Abnormal Pap smear of cervix (~2018) Alopecia Bilateral hand pain Carpal tunnel syndrome on both sides Fatigue Leg edema, right Obesity Right leg numbness Spinal stenosis, lumbar region with neurogenic claudication Varicose vein of leg Weakness of right lower extremity Surgical History Anesthesia History of appendectomy History of section Hx of microdiscectomy (01/10/23) Family History Father Diabetes mellitus Hypertension Hyperlipidemia Drug use Grandfather Cancer History of heart disease Hypertension Grandmother Cancer Diabetes mellitus History of heart disease Hypertension Grandfather Cancer Grandmother Stroke Social History household members: children Smoking Status: Never smoker alcohol intake: current Assessment & Plan Post-op Postoperative Procedures: Procedures Operation Date: 03/07/23 15:15 Actual Procedure Side Surgeon p L3-4 TLIF Mela Wood MD Postoperative day: 1 Postoperative status narrative: Stable status post L3-L4 fusion Postoperative plan: routine post-op care Postoperative plan narrative: Multimodal pain management, note the patient has allergy to oxycodone Mobilize with physical therapy, limit bending, twisting, lifting Disposition to be determined
[2023-03-08 12:30] VITALS: BP 121/61; PULSE 74; RESP 17; TEMP 36.1; O2SAT 100
--- NOTE | 2023-03-08 15:10 | PT.IIE ---
Current Diagnoses Spinal stenosis, lumbar region with neurogenic claudication (03/07/23) Other intervertebral disc displacement, lumbar region (03/07/23) Surgery Performed Operation Date: 03/07/23 15:15 Actual Procedures p L3-4 TLIF - Mela Wood MD Surgical History (Last Reviewed 03/08/23 @ 10:42 by Robert Dinero PA-C) Anesthesia History of appendectomy History of section Hx of microdiscectomy (01/10/23) Medical History (Last Reviewed 03/08/23 @ 10:42 by Robert Dinero PA-C) Abnormal Pap smear of cervix (~2018) Alopecia Bilateral hand pain Carpal tunnel syndrome on both sides Fatigue Leg edema, right Obesity Right leg numbness Spinal stenosis, lumbar region with neurogenic claudication Varicose vein of leg Weakness of right lower extremity Physical Therapy Inpatient Evaluation/Re-Eval M1 PT/OT-IP Prior Functional Status Start: 03/08/23 17:29 Freq: NEEDED Status: Active Protocol: Document 03/08/23 15:10 AB (Rec: 03/08/23 17:44 AB [id number]) Medical Review Prior Functional Status Medical History Reviewed Yes Communication able to make needs known Mobility and Gait pt stated that she was modified independent with all mobilities and ambulation without AD. Pt stated that she had a fall and underwent hemilaminectomy ~ 2 weeks ago but has 2 more falls afterwards and needing emergency back surgery. Activities of Daily Living and IADL's per OT note: Pt states now havin trouble with getting her shoes on due to decreased movement in her right foot. Social History Household Members children Living Arrangements House Number of Floors (Floors) One Floor Number of Stairs To Enter/Railing? no steps to enter Home Environment Standard Height Toilet,Walk in Shower,Built-In Shower Seat Home Equipment Hand Held Shower,Grab Bars In Shower M2 PT-IP Current Condition Start: 03/08/23 17:29 Freq: NEEDED Status: Active Protocol: Document 03/08/23 15:10 AB (Rec: 03/08/23 17:44 AB [id number]) Physical Therapy Current Condition Current Condition Evaluation Date 03/08/23 Treatment Diagnosis s/p L3-4 fusion; difficulty in walking Onset Date M3 PT-IP Subjective Start: 07/18/23 17:29 Freq: NEEDED Status: Active Protocol: Document 03/08/23 15:10 AB (Rec: 03/08/23 17:44 AB [id number]) Subjective Physical Therapy Visit Type Type Initial Evaluation Visit Start Time 15:10 Visit Stop Time 16:00 Total Visit Minutes 50 Number of RECREATIONAL ASSISTANT Visits 0 Physical Therapy Visit Comments Patient Comments agreeable to do PT Therapy Pain Assessment Pain When Pain Assessed At Rest Pain Present Pain Present Pain Reported Location Back Intensity 9 Scale Used Numeric (0 - 10) M4 PT-IP Mobility and Gait Start: 03/08/23 17:29 Freq: NEEDED Status: Active Protocol: Document 03/08/23 15:10 AB (Rec: 03/08/23 17:44 AB [id number]) PT-Bed Mobility Assessment Rolling Type of Rolling Log Rolling Level of Assist Maximal Assistance,2 Person Assistance Supine to Sit Supine to Sit Maximum Assistance,1 Person Assistance,2 Person Assistance Sit to Supine Sit to Supine Maximum Assistance,1 Person Assistance,2 Person Assistance Scooting Scooting to Edge of Bed Maximum Assistance PT-Transfer Assessment Sit to and From Stand Sit to and from Stand Maximum Assistance,1 Person Assistance,2 Person Assistance ,Use of Upper Extremities Equipment Transfer Assistive Device Gait Belt,Front Wheeled Walker Orthotic/Prosthetic Devices or Brace: No Transfers Transfer Destination Toilet Transfer Technique ambulated Transfer Ability Level of Assist Maximum Assistance,1 Person Assistance,Use of Upper Extremities Comments Mobility Comments pt able to recall back precautions. completed log roll supine to sit max A and max cues. needed 2 attempts to sit up due to c/o increase back pain. able to sit on EOB CGA. completed sit to stand max A x 1-2 and max cues and ambulated in room using FW max A. (+) R knee buckling and foot drop and presents with ataxic gait. pt with decrease motor control on RLE and needing max cues and max A for steadiness. pt requested to use the toilet. ambulated to the toilet max A x 1 and max cues using FWW. NAC SBA for safety provided. pt requiring assist with brief management and hygiene care. pt completed sit to stand from the toilet max A x 2 and max cues. pt ambulated in room ~ 30 ft using FWW max A and max cues. pt sat on EOB and does not want to sit on the chair. sit to supine max A x 2 and max cues for log roll. positioned pt on the bed. call lightand table placed within reach. Gait Assessment Gait Gait Assistance Required: Maximum Assistance,1 Person Assist Distance (Feet) 30 Able to Maintain Weight Bearing Status Yes During Gait Assistive Devices Assistive Device Gait Belt,Front Wheeled Walker Orthotic/Prosthetic Devices or Brace: No Gait Deviations General Gait Pattern Decreased Stride Length, Decreased Feet Clearance,Step- to Gait Factors Limiting Gait Function Factors Limiting Gait Function Decreased Activity Tolerance, Decreased Sensation,Decreased Strength,Difficulty Following Directions,Incoordination, Limited Range of Motion,Pain, Poor Balance,Poor Safety Awareness PT-Balance Assessment Sitting Balance and Reactions Static Sitting Balance Ability Good Dynamic Sitting Balance Ability Fair Standing Balance and Reactions Static Standing Balance Ability Poor Dynamic Standing Balance Ability Poor Device Used FWW M5 PT-IP Objective Assessments Start: 03/08/23 17:29 Freq: NEEDED Status: Active Protocol: Document 03/08/23 15:10 AB (Rec: 03/08/23 17:44 AB [id number]) Orientation Orientation/Cognition Level of Alertness Alert Orientation Name,Place,Situation Language Function Ability No Deficits Noted Safety Awareness Decreased Safety Awareness Memory Description No Deficits Noted Gross Range of Motion Lower Extremity ROM Assessment Within Functional Limits Strength Lower Extremity Strength Assessment Bilaterally Impaired Comments Strength Comments RLE: 3-/5 LLE: 3+/5 Sensation Assessment Sensation Gross Sensation Right LE Impaired Light Touch Impaired Proprioception (Position) Impaired Sensation Description Numbness Comments Sensation Comments c/o RLE numbness Muscle Tone Muscle Tone WNL Yes M6 PT-IP Treatment Start: 03/08/23 17:29 Freq: NEEDED Status: Active Protocol: Document 03/08/23 15:10 AB (Rec: 03/08/23 17:44 AB [id number]) Physical Therapy Treatment Education Education Provided Precautions,Weight Bearing Status,Safety M7 PT-IP Assessment and Plan Start: 03/08/23 17:29 Freq: NEEDED Status: Active Protocol: Document 03/08/23 15:10 AB (Rec: 03/08/23 17:44 AB [id number]) PT Summary Assessment and Plan Potential Rehabilitation Potential Fair Status of Condition at Evaluation Evolving Summary Impairments Pain,ROM,Strength,Balance, Coordination,Sensation,Tone, Cognition,Bed Mobility, Transfers,Gait,Activity Tolerance Assessment Summary pt s/p L3-4 fusion POD 1. pt requiring max A x 1-2 for bed mobility, max A x 1-2 for sit to stand and max A for ambulation using FWW with decrease LLE control/slight buckling and foot drop. pt needing 24/7 assist at this time and will need SNF rehab. pt stated that her mother will be staying with her but will only be there until Tuesday. will continue to assess progress. Goals Bed Mobility Goal Minimal Assistance Transfer Goal Minimal Assistance,Front Wheeled Walker Gait Goal Minimal Assistance,Front Wheel Walker Gait Distance 100 Other Goals improve bed mobility, transfers using FWW, ambulation using FWW SBA 200 ft Days to Meet Goals 10 Frequency of Treatment Frequency Of Treatment Twice a Day Treatment Plan Physical Therapy Treatment Plan Bed Mobility Training,Transfer Training,Gait Training, Therapeutic Exercise,Balance Retraining,Post Op Education, Discharge Planning,Hot or Cold Pack,Neuromuscular Re-ed, Coordination Retraining,Manual Therapy Precautions Lumbar Precautions Log Roll,No Twisting,Limit Bending,Lifting Restriction of 10 lbs,Gait Belt above Incisional Area Recommendations To Nursing Amount of Assist Needed 2 Person Assist Discharge Recommendations PT Discharge Recommendations SNF Rehab Equipment Needed for Home Before FWW Discharge Transportation Needs at Discharge Wheelchair/Cabulance
[2023-03-08] MEDS: SENNOSIDES 8.6 MG TABLET 17.2 MG PO (22:23)
[2023-03-08] MEDS: GABAPENTIN 300 MG CAPSULE PO (22:23)
[2023-03-08 22:42] VITALS: BP 141/71; PULSE 75; RESP 18; TEMP 36.4; O2SAT 100
[2023-03-09] MEDS: HYDROMORPHONE 2 MG TABLET PO ×2 (03:31→13:40)
--- NOTE | 2023-03-09 08:21 | P.PN_ITS ---
Subjective Subjective Interval history: Patient states her pain is significantly less compared to yesterday. She is unable to take oxycodone because it causes difficulty breathing. She is not tried other narcotics and states Dilaudid typically works well for her. She does live alone. No nausea vomiting. No fever chills. Exam Vital Signs (past 8 hours): Oxygen Delivery Method Room Air Oxygen Flow Rate 0 Narrative Exam Narrative: 37-year-old female resting comfortably in bed in no apparent distress. Significant weakness with dorsiflexion and great toe extension on the right she has good strength with plantar flexion. Sensation diminished to light touch rig ht lower extremity. Const General: cooperative and comfortable Nutritional Appearance: well nourished Orientation: alert Resp Effort & Inspection: normal respiratory effort and able to speak in complete sentences Objective Labs 03/07/23 14:05 [facility] Medical History Abnormal Pap smear of cervix (~2019) Alopecia Bilateral hand pain Carpal tunnel syndrome on both sides Fatigue Leg edema, right Obesity Right leg numbness Spinal stenosis, lumbar region with neurogenic claudication Varicose vein of leg Weakness of right lower extremity Surgical History Anesthesia History of appendectomy History of section Hx of microdiscectomy (01/10/23) Family History Father Diabetes mellitus Hypertension Hyperlipidemia Drug use Grandfather Cancer History of heart disease Hypertension Grandmother Cancer Diabetes mellitus History of heart disease Hypertension Grandfather Cancer Grandmother Stroke Social History household members: children Smoking Status: Never smoker alcohol intake: current Assessment & Plan Post-op Postoperative Procedures: Procedures Operation Date: 03/07/23 15:15 Actual Procedure Side Surgeon p L3-4 TLIF Mela Wood MD Postoperative day: 2 Postoperative status: doing well Postoperative status narrative: Patient improving status post L3-L4 fusion Postoperative plan: routine post-op care and ambulate Postoperative plan narrative: Physical therapy to fit AFO for right lower extremity weakness Ambulate, limit bending, twisting, lifting Multimodal pain management, patient is allergic to oxycodone Disposition, to be determined, patient lives alone currently 2 person assist
[2023-03-09] MEDS: ACETAMINOPHEN 325 MG TABLET 650 MG PO (08:37)
[2023-03-09] MEDS: DOCUSATE 100 MG CAPSULE PO (08:38)
[2023-03-09] MEDS: CYCLOBENZAPRINE 10 MG TABLET PO (08:39)
[2023-03-09] MEDS: polyethylene glycoL 3350 17 GM POWD.PACK PO (08:39)
[2023-03-09] MEDS: MAGNESIUM HYDROXIDE 30 ML UDC PO (08:39)
[2023-03-09] MEDS: FERROUS SULFATE 325 MG TABLET PO (08:39)
--- NOTE | 2023-03-09 08:45 | PT.IPTN ---
Current Diagnoses Spinal stenosis, lumbar region with neurogenic claudication (03/07/23) Other intervertebral disc displacement, lumbar region (03/07/23) Surgery Performed Operation Date: 03/07/23 15:15 Actual Procedures p L3-4 TLIF - Mela Wood MD Physical Therapy Treatment Note M2 PT-IP Current Condition Start: 03/08/23 17:29 Freq: NEEDED Status: Active Protocol: Document 03/08/23 15:10 AB (Rec: 03/08/23 17:44 AB [id number]) Physical Therapy Current Condition Current Condition Evaluation Date 03/08/23 Treatment Diagnosis s/p L3-4 fusion; difficulty in walking Onset Date M3 PT-IP Subjective Start: 03/08/23 17:29 Freq: NEEDED Status: Active Protocol: Document 03/09/23 09:35 TS (Rec: 03/09/23 09:45 TS [id number]) Subjective Physical Therapy Visit Type Type Treatment Note Visit Start Time 08:45 Visit Stop Time 09:15 Total Visit Minutes 30 Number of STRIP STAMP STRAIGHTENER Visits 1 Physical Therapy Visit Comments Patient Comments Pain is much better today, agreeable to do PT Therapy Pain Assessment Pain When Pain Assessed During Mobility Pain Present Pain Present Pain Reported M4 PT-IP Mobility and Gait Start: 03/08/23 17:29 Freq: NEEDED Status: Active Protocol: Document 03/09/23 09:35 TS (Rec: 03/09/23 09:45 TS [id number]) PT-Bed Mobility Assessment Rolling Type of Rolling Log Rolling Level of Assist Contact Guard Assistance,1 Person Assistance Supine to Sit Supine to Sit Standby Assistance Sit to Supine Sit to Supine Minimal Assistance,1 Person Assistance Scooting Scooting to Edge of Bed Minimal Assistance Scooting Up and Down in Bed Standby Assistance PT-Transfer Assessment Sit to and From Stand Sit to and from Stand Standby Assistance Equipment Transfer Assistive Device Gait Belt,Front Wheeled Walker Orthotic/Prosthetic Devices or Brace: No Comments Mobility Comments Logroll CGA, demonstrates god carryover of sequencing. Supine to sit SBA, slow to upright and come onto elbow and up on hands. She scooted to EOB Nilson with transfer pad. Sit to stand SBA with FWW, good posture and balance in standing. She ambulated SBA 250' with foot drop on R foot, unsteady with gait. She ambulated ~30' in room no AD CGA unsteady and furniture surfs. Sit to supine Nilson for LEs into bed. Pt was left in bed with call light nearby, RN notified. Gait Assessment Gait Gait Assistance Required: Standby Assistance,Contact Guard Assist,1 Person Assist Distance (Feet) 280 Able to Maintain Weight Bearing Status Yes During Gait Assistive Devices Assistive Device Gait Belt,Front Wheeled Walker Orthotic/Prosthetic Devices or Brace: No Gait Deviations General Gait Pattern Decreased Stride Length, Decreased Feet Clearance,Step- to Gait Factors Limiting Gait Function Factors Limiting Gait Function Decreased Activity Tolerance, Decreased Sensation,Decreased Strength,Incoordination, Limited Range of Motion,Pain, Poor Balance,Poor Safety Awareness Comments Gait Comments Ambulated no AD 30 CGA, 250 SBA with FWW Stair Climbing Assessment Evaluation Level of Assist On Stairs Minimal Assistance,1 Person Assistance Devices Stair Climbing Assistive Devices Left Railing,Right Railing Technique/Endurance Stair Climbing Direction Ascend and Descend Stair Climbing Technique Step to Step Number of Steps Climbed 4 Comments Stair Climbing Comments Stairs x4 on step stool with Nilson PT-Balance Assessment Sitting Balance and Reactions Static Sitting Balance Ability Good Dynamic Sitting Balance Ability Good Standing Balance and Reactions Static Standing Balance Ability Good Dynamic Standing Balance Ability Fair M5 PT-IP Objective Assessments Start: 03/08/23 17:29 Freq: NEEDED Status: Active Protocol: Document 03/08/23 15:10 AB (Rec: 03/08/23 17:44 AB [id number]) Orientation Orientation/Cognition Level of Alertness Alert Orientation Name,Place,Situation Language Function Ability No Deficits Noted Safety Awareness Decreased Safety Awareness Memory Description No Deficits Noted Gross Range of Motion Lower Extremity ROM Assessment Within Functional Limits Strength Lower Extremity Strength Assessment Bilaterally Impaired Comments Strength Comments RLE: 3-/5 LLE: 3+/5 Sensation Assessment Sensation Gross Sensation Right LE Impaired Light Touch Impaired Proprioception (Position) Impaired Sensation Description Numbness Comments Sensation Comments c/o RLE numbness Muscle Tone Muscle Tone WNL Yes M6 PT-IP Treatment Start: 03/08/23 17:29 Freq: NEEDED Status: Active Protocol: Document 03/09/23 09:35 TS (Rec: 03/09/23 09:45 TS [id number]) Physical Therapy Treatment Education Education Provided Precautions,Weight Bearing Status,Safety M7 PT-IP Assessment and Plan Start: 03/08/23 17:29 Freq: NEEDED Status: Active Protocol: Document 03/09/23 09:35 TS (Rec: 03/09/23 09:45 TS [id number]) PT Summary Assessment and Plan Potential Rehabilitation Potential Good Summary Impairments Pain,ROM,Strength,Balance, Coordination,Sensation,Tone, Cognition,Bed Mobility, Transfers,Gait,Activity Tolerance Progress Towards Goals Progressing Toward Goals Assessment Summary Pt is progressing well with her mobility. She progressed to CGA for bed mobility and Nilson for scooting to EOB. She performed sit to stand with FWW SBA and ambulated ~250 SBA with FWW, is unsteady with R foot drop. She ambulated ~30' in room with no AD, unsteady and furniture surfs. PT is recommending home with assist. Pt has mother who will be staying with her until Tuesday. FWW was dispensed. Goals Bed Mobility Goal Minimal Assistance Transfer Goal Minimal Assistance,Front Wheeled Walker Gait Goal Minimal Assistance,Front Wheel Walker Gait Distance 100 Other Goals improve bed mobility, transfers using FWW, ambulation using FWW SBA 200 ft Days to Meet Goals 10 Frequency of Treatment Frequency Of Treatment Twice a Day Treatment Plan Physical Therapy Treatment Plan Bed Mobility Training,Transfer Training,Gait Training, Therapeutic Exercise,Balance Retraining,Post Op Education, Discharge Planning,Hot or Cold Pack,Neuromuscular Re-ed, Coordination Retraining,Manual Therapy Precautions Lumbar Precautions Log Roll,No Twisting,Limit Bending,Lifting Restriction of 10 lbs,Gait Belt above Incisional Area Recommendations To Nursing Amount of Assist Needed 1 Person Assist Discharge Recommendations PT Discharge Recommendations Home with Assistance Equipment Needed for Home Before FWW Discharge Transportation Needs at Discharge Private Vehicle
[2023-03-09 08:59] VITALS: BP 130/69; PULSE 93; RESP 18; TEMP 36.9; O2SAT 95
--- NOTE | 2023-03-09 11:57 | OT.IPNOTE ---
Pt not wanting to get up at this time, just wanting to rest and wait for her mom to come and pick her up to go home. Per pt moving much better today and wanting to go home. Pt states has no further questions for OT. No charge
--- NOTE | 2023-03-09 12:23 | PM.DS.1 ---
History of Present Illness History of Present Illness Date Patient Seen: 03/09/23 Time Patient Seen: 12:23 Chief complaint: leg pain and weakness Narrative: see progress note Discharge Providers Provider Date of admission: 03/07/23 13:26 Discharge Date: 03/09/23 Primary care physician: Lucas Quinn MD Consults: 03/07/23 17:56 Consult to Occupational Therapy Evaluate & Treat Comment: Physician Instructions: Evaluate and treat Consult to Physical Therapy Evaluate & Treat Comment: Physician Instructions: Evaluate and Treat 03/09/23 08:21 Consult to Physical Therapy Evaluate & Treat Comment: Fit AFO, right lower extremity weakness Physician Instructions: Evaluate and Treat 03/09/23 09:11 Consult to Physical Therapy Evaluate & Treat Comment: Physician Instructions: walker for home use Discharge provider: Robert Dinero PA-C Summary Hospital Course Discharge Diagnosis: 1. L3-4 recurrent disc herniation 2. L3-4 spinal stenosis with neurogenic claudication Post-op diagnosis: same Hospital Course: 1. L3-4 Postero-lateral and posterior interbody fusion 2. L3-4 interbody cage placement. 3. L3-4 decompressive laminectomy with bilateral facetecomies 4. L3-4 Posterior non-segmental instrumentation 5. Cook of bone marrow from iliac crest 6. Utilization of microsurgical technique and operating microscope Same procedure as scheduled: Yes Indications: Patient has been having acute worsening back pain and worsening lumbar radiculopathy with paresthesias to her entire right foot and no drop foot to her right lower extremity developed 2 weeks ago.? Patient is 6 weeks status post L3-4 microdiskectomy and has been pain-free for the last 1 month.? Patient has new symptoms was developed after a fall.? Urgent MRI was obtained which showed a large recurrent disc herniation L3-4 level with severe central spinal stenosis.? Patient has symptoms of neurogenic claudication and acute onset right-sided drop foot along with radiculopathy to both sides. Patient has been having difficulty performing activity of daily living.? After discussing risks benefits of treatment options, patient elected proceed with surgery urgently. Surgeon: Mela Wood Pilot Plant Supervisor: Tammy Caldwell Click Yes if Unassisted: Yes Anesthesia Type: General Operative Notes Closure Type: primary Specimen(s): none sent Prosthetic devices, grafts, tissues, transplants, or devices: Globus revolve screws, Rise cage Estimated Blood Loss (mL): 50 Blood products transfused: none Patient admitted to the hospital for the above-mentioned procedure DC home today in stable condition. Exam Vital Signs (past 8 hours): - 03/09/23 08:59 Temperature 98.4 F Pulse Rate 93 H Respiratory Rate 18 Blood Pressure 130/69 Pulse Oximetry 95 Oxygen Flow Rate 0 Oxygen Delivery Method Room Air Oxygen Flow Rate 0 Objective Labs 03/07/23 14:05 PFSH Medical History Abnormal Pap smear of cervix (~2018) Alopecia Bilateral hand pain Carpal tunnel syndrome on both sides Fatigue Leg edema, right Obesity Right leg numbness Spinal stenosis, lumbar region with neurogenic claudication Varicose vein of leg Weakness of right lower extremity Surgical History Anesthesia History of appendectomy History of section Hx of microdiscectomy (01/10/23) Family History Father Diabetes mellitus Hypertension Hyperlipidemia Drug use Grandfather Cancer History of heart disease Hypertension Grandmother Cancer Diabetes mellitus History of heart disease Hypertension Grandfather Cancer Grandmother Stroke Social History household members: children Smoking Status: Never smoker alcohol intake: current Discharge Assessment & Plan Assessment and Plan Assessment: improving Plan of Treatment: DC home today in stable condition Discharge Plan Discharge Plan Patient Disposition: Home Discharge orders & Medications Prescriptions: New hydromorphone 2 mg Tablet 2 mg PO Q4H PRN (Reason: pain) Qty: 40 0RF docusate sodium 100 mg Capsule 100 mg PO BID Qty: 20 0RF hydroxyzine pamoate 25 mg Capsule 25 mg PO Q4HR PRN (Reason: Nausea And Vomiting) Qty: 20 0RF Continued MULTIVITAMIN (Multivitamin -) 1 tab PO DAILY Qty: 0 cyclobenzaprine 10 mg tablet 10 mg PO BID PRN (Reason: muscle spasm) Qty: 30 0RF Rx Instructions: may make drowsy, do not drive ibuprofen 200 mg tablet 600 mg PO BID PRN (Reason: pain) Qty: 60 0RF ferrous sulfate 324 mg (65 mg iron) tablet,delayed release (DR/EC) 324 mg PO DAILY Qty: 90 1RF acetaminophen [Tylenol Extra Strength] 500 mg tablet 500 mg PO Q6H PRN (Reason: Pain (Scale Score 4-6)) cyclobenzaprine 10 mg tablet 10 mg PO TID PRN (Reason: muscle spasm) Qty: 14 0RF gabapentin 300 mg capsule 300 mg PO BEDTIME Qty: 14 0RF methylprednisolone [Medrol (Rodriguez)] 4 mg tablets,dose pack See Rx Instructions .ROUTE .COMPLEX Qty: 21 0RF Rx Instructions: orally per package directions Discontinued hydromorphone [Dilaudid] 2 mg tablet 2 mg PO Q4-6H PRN (Reason: pain) Qty: 14 0RF Follow up/Referrals: Lucas Quinn MD [Primary Care Provider] - Mela Wood MD [Physician] - As previously scheduled (Follow up with Dr Wood on 03/24/2023 @ 1:10 pm at [facility] in [place].) Diet/Activity/Treatments Diet: Diet as Tolerated Activity: No deep bending or twisting at the waist. No lifting more than 10 pounds. Cold/Heat Therapy: Heating pad to low back as needed for pain. Skin/Wound/Dressing Care Report to your healthcare provider any signs of infection, such as:: chills, fever, night sweats, unusual drainage and unusual redness Dressing: May shower; keep dressing as dry as possible. If dressing becomes wet or dirty, may remove and replace with clean, dry gauze. No bathing or otherwise soaking incisions. Do not apply any creams, lotions, or ointments to incisions. Visit Report/Discharge Packet Instructions: DI for Prescription Opioid Use, DI for Transforaminal Lumbar Interbody Fusion Stand Alone Forms: Patient Portal/API, Stroke Signs & Symptoms Discharge Data Primary Care Provider: Lucas Quinn
--- NOTE | 2023-03-09 12:26 | CM.DPC ---
DCP Continued: DIRECT MARKETING REPRESENTATIVE reviewed EMR. Per PT, their recommendation is home with assistance. PT says she's doing much better this morning. PT reports patient will need a walker. DIRECT MARKETING REPRESENTATIVE placed verbal read back order for a walker. DIRECT MARKETING REPRESENTATIVE entered room and introduced self and role. Patient was resting in bed and appeared A/Ox4. Patient reports she wants to go home and has her mother staying with her the next few days to help with her care. Patient has walker now and reports having concerns with going home with a boot. ANY Dinero reported to patient that he would write an order for patient to obtain boot in an OP setting due to the hospital not having the specific boot available at the hospital. Plan: patient will d/c home with mother. Patient will have walker and will obtain specific boot needed. CM team will continue to follow as needed. GE Scott
== END 2023-03-09 13:45 | disposition home or self-care (01) | DRG 454 ==
PROVIDERS: Physician Assistant; Admitting Provider Orthopaedic Surgery Orthopaedic Surgery of the Spine; Family Provider Family Medicine; PCP Family Medicine; Referring Provider Orthopaedic Surgery Orthopaedic Surgery of the Spine; Visit Provider Orthopaedic Surgery Orthopaedic Surgery of the Spine
PROC: 0SG00AJ Fusion of Lumbar Vertebral Joint with Interbody Fusion Device, Posterior Approach, Anterior Column, Open Approach (ICD-10-PCS; principal; 2023-03-07 15:15)
DX: M51.16 Intervertebral disc disorders with radiculopathy, lumbar region (principal); Z68.41 Body mass index [BMI] 40.0-44.9, adult; M48.062 Spinal stenosis, lumbar region with neurogenic claudication; E66.9 Obesity, unspecified
CPT/HCPCS: 72100; 76000; 85027; 97116; 97162; 97165; 97530; 97535; C1713; C1831; C9290; J0171; J0330; J0690; J1100; J1170; J2405; J2704; J3010

== ENCOUNTER → 2023-04-13 12:28 | Outpatient (CLI) | payer OTHER, SELFPAY ==
[2023-03-07 18:23] VITALS: BMI 40.6
[2023-04-13 14:15] LABS: Add Manual Diff / Slide Review NO; Basophils Absolute Auto 100 /uL (0-100); Basophils Percent Auto 0.9 % (0-2); Eosinophils Absolute Auto 100 /uL (0-450); Eosinophils Percent Auto 0.9 % (2-4); Hematocrit 33.4 % (36-46); Hemoglobin 10.9 g/dL (12.0-16.0); Lymphocytes Absolute Auto 2400 /uL (1100-4500); Lymphocytes Percent Auto 26.1 % (25-40); Mean Corpuscular HGB Conc 32.6 % (30-36); Mean Corpuscular Hemoglobin 26.2 PG (26-34); Mean Corpuscular Volume 80.3 fL (80-100); Monocytes Absolute Auto 700 /uL (0-900); Monocytes Percent Auto 8.1 % (3-14); Neutrophils Absolute Auto 5800 /uL (1500-7000); Platelet Count 313 X10^3/uL (150-400); Red Blood Cell Count 4.15 X10^6/uL (4.0-5.2); Red Cell Distribution Width 17.5 % (11.6-14.8)
[2023-04-13 14:56] LABS: Alanine Aminotransferase 17 IU/L (<35); Albumin 4.4 g/dL (3.5-5.0); Albumin Globulin Ratio 1.5 (1.0-2.8); Alkaline Phosphatase 84 U/L (38-126); Aspartate Aminotransferase 19 IU/L (14-36); BUN Creatinine Ratio 17.2 (6-22); Bilirubin Total 0.2 mg/dL (0.2-1.3); Blood Urea Nitrogen 11 mg/dL (7-17); Calcium 9.3 mg/dL (8.4-10.2); Carbon Dioxide 26 mmol/L (22-32); Chloride 103 mmol/L (98-107); Estimated Glomerular Filt Rate > 60 mL/min (>60); Globulin 2.9 g/dL (1.7-4.1); Glucose 84 mg/dL (70-100); HEMOLYSIS < 15 (0-50); Lipase 48 U/L (23-300); Potassium 4.3 mmol/L (3.4-5.1); Sodium 138 mmol/L (137-145); Total Protein 7.3 g/dL (6.3-8.2)
[2023-04-13 15:21] LABS: TSH w/ Reflex to FT4 0.53 uIU/mL (0.47-4.68)
== END ==
PROVIDERS: Family Provider Family Medicine; PCP Family Medicine; Referring Provider Family Medicine; Visit Provider Family Medicine
DX: R10.13 Epigastric pain (principal)
CPT/HCPCS: 36415; 80053; 83690; 84443; 85025

== ENCOUNTER → 2023-04-28 15:03 | Outpatient (CLI) | payer OTHER, SELFPAY ==
[2023-04-13 12:19] VITALS: BMI 40.6
[2023-04-28 15:45] LABS: Color Urine UA ORANGE
[2023-04-28 16:05] LABS: Appearance Urine UA CLOUDY
[2023-04-28 16:06] LABS: Bacteria Urine Moderate (10-30); RBC Urine 0-1/HPF (0-5/HPF); Squamous Epithelial Cell Urine 1-5 /HPF (0-5/HPF); WBC Urine 10-30/HPF (0-5/HPF)
[2023-04-28 16:07] LABS: Culture Indicated Urine Specimen Cultured; White Blood Cell Casts Urine 0-1/LPF
[2023-04-28 16:22] LABS: Add Manual Diff / Slide Review NO; Basophils Absolute Auto 100 /uL (0-100); Basophils Percent Auto 0.7 % (0-2); Eosinophils Absolute Auto 100 /uL (0-450); Eosinophils Percent Auto 1.3 % (2-4); Hematocrit 33.4 % (36-46); Hemoglobin 11.1 g/dL (12.0-16.0); Lymphocytes Absolute Auto 1900 /uL (1100-4500); Lymphocytes Percent Auto 20.6 % (25-40); Mean Corpuscular HGB Conc 33.2 % (30-36); Mean Corpuscular Hemoglobin 25.7 PG (26-34); Mean Corpuscular Volume 77.3 fL (80-100); Monocytes Absolute Auto 900 /uL (0-900); Monocytes Percent Auto 9.9 % (3-14); Neutrophils Absolute Auto 6200 /uL (1500-7000); Neutrophils Percent Auto 67.5 % (50-75); Platelet Count 458 X10^3/uL (150-400); Red Blood Cell Count 4.32 X10^6/uL (4.0-5.2); White Blood Cell Count 9.1 X10^3/uL (4.5-11.0)
[2023-04-28 16:31] LABS: HEMOLYSIS < 15 (0-50); Iron 33 ug/dL (37-170)
[2023-04-28 16:41] LABS: Percent Iron Saturation 7 % (15-50); Total Iron Binding Capacity 489 ug/dL (265-497); Transferrin 382 mg/dL (206-381)
[2023-04-28 17:06] LABS: Ferritin 13 ng/mL (6-137)
[2023-04-29 16:10] LABS: Interpretation Negative (Negative)
== END ==
PROVIDERS: Family Provider Family Medicine; PCP Family Medicine; Referring Provider Family Medicine; Visit Provider Family Medicine
DX: R10.13 Epigastric pain (principal); Z91.014 Allergy to mammalian meats
CPT/HCPCS: 36415; 81001; 82728; 83013; 83540; 83550; 85025; 87086

== ENCOUNTER → 2023-04-29 12:56 | Outpatient (CLI) | payer OTHER, SELFPAY ==
[2023-04-13 12:19] VITALS: BMI 40.6
[2023-04-29 13:52] LABS: Alanine Aminotransferase 500 IU/L (<35); Albumin 4.5 g/dL (3.5-5.0); Albumin Globulin Ratio 1.4 (1.0-2.8); Alkaline Phosphatase 223 U/L (38-126); Aspartate Aminotransferase 280 IU/L (14-36); BUN Creatinine Ratio 8.7 (6-22); Bilirubin Total 3.7 mg/dL (0.2-1.3); Blood Urea Nitrogen 6 mg/dL (7-17); Calcium 9.7 mg/dL (8.4-10.2); Carbon Dioxide 27 mmol/L (22-32); Chloride 101 mmol/L (98-107); Estimated Glomerular Filt Rate > 60 mL/min (>60); Globulin 3.2 g/dL (1.7-4.1); Glucose 90 mg/dL (70-100); HEMOLYSIS < 15 (0-50); Potassium 4.4 mmol/L (3.4-5.1); Sodium 139 mmol/L (137-145); Total Protein 7.7 g/dL (6.3-8.2)
== END ==
PROVIDERS: Family Provider Family Medicine; PCP Family Medicine; Visit Provider Family Medicine
DX: R79.89 Other specified abnormal findings of blood chemistry (principal)
CPT/HCPCS: 80053

== ENCOUNTER → 2023-05-06 10:34 | Outpatient (CLI) | payer OTHER, SELFPAY ==
[2023-04-13 12:19] VITALS: BMI 40.6
[2023-05-06 12:45] LABS: Appearance Urine UA CLEAR; Bilirubin Urine UA 1+ (NEGATIVE); Color Urine UA YELLOW; Glucose Urine UA NEGATIVE (Negative); Ketones Urine UA NEGATIVE (NEGATIVE); Leukocyte Esterase Urine UA NEGATIVE (NEGATIVE); Nitrite Urine UA NEGATIVE (Negative); Occult Blood Urine UA NEGATIVE (Negative); Protein Urine UA NEGATIVE (Negative); Specific Gravity Urine UA >=1.030 (1.000-1.035)
[2023-05-06 13:00] LABS: Alanine Aminotransferase 243 IU/L (<35); Albumin Globulin Ratio 1.4 (1.0-2.8); Alkaline Phosphatase 115 U/L (38-126); Aspartate Aminotransferase 125 IU/L (14-36); BUN Creatinine Ratio 13.1 (6-22); Bilirubin Total 0.5 mg/dL (0.2-1.3); Blood Urea Nitrogen 8 mg/dL (7-17); Calcium 9.5 mg/dL (8.4-10.2); Carbon Dioxide 28 mmol/L (22-32); Chloride 104 mmol/L (98-107); Estimated Glomerular Filt Rate > 60 mL/min (>60); Globulin 2.9 g/dL (1.7-4.1); Glucose 83 mg/dL (70-100); HEMOLYSIS < 15 (0-50); Potassium 4.2 mmol/L (3.4-5.1); Sodium 140 mmol/L (137-145); Total Protein 6.9 g/dL (6.3-8.2)
[2023-05-06 13:17] LABS: Bacteria Urine Few (2-10); Culture Indicated Urine Cult Not Indicated; Ictotest Urine Positive (Negative); RBC Urine None Seen (0-5/HPF); Squamous Epithelial Cell Urine 5-10 /HPF (0-5/HPF); WBC Urine 0-1/HPF (0-5/HPF)
[2023-05-06 14:08] LABS: HIV 1 & 2 Ab/Ag 4th Gen Combo NEGATIVE (NEGATIVE); Hep C Virus Ab w/Reflex Quant NEGATIVE s/c (NEGATIVE)
[2023-05-06 14:47] LABS: Urine Chlamydia NOT DETECTED; Urine N gonorrhoeae NOT DETECTED
[2023-05-07 09:09] LABS: RPR Screen Non Reactive (Non Reactive)
[2023-05-07 09:39] LABS: Lipase 75 U/L (23-300)
== END ==
PROVIDERS: Family Provider Family Medicine; PCP Family Medicine; Referring Provider Pediatrics; Visit Provider Pediatrics
DX: R79.89 Other specified abnormal findings of blood chemistry (principal); Z11.3 Encounter for screening for infections with a predominantly sexual mode of transmission; B37.31 Acute candidiasis of vulva and vagina; K80.20 Calculus of gallbladder without cholecystitis without obstruction
CPT/HCPCS: 36415; 80053; 81001; 83690; 86592; 86803; 87389; 87491; 87591

== ENCOUNTER → 2023-10-27 09:01 | Outpatient (CLI) | payer OTHER, SELFPAY ==
[2023-04-13 12:19] VITALS: BMI 40.6
[2023-10-27 09:30] LABS: Add Manual Diff / Slide Review NO; Basophils Absolute Auto 100 /uL (0-100); Basophils Percent Auto 1.1 % (0-2); Eosinophils Absolute Auto 100 /uL (0-450); Eosinophils Percent Auto 1.2 % (2-4); Hemoglobin 9.8 g/dL (12.0-16.0); Lymphocytes Absolute Auto 1900 /uL (1100-4500); Lymphocytes Percent Auto 24.9 % (25-40); Mean Corpuscular HGB Conc 31.5 % (30-36); Mean Corpuscular Hemoglobin 23.3 PG (26-34); Mean Corpuscular Volume 73.9 fL (80-100); Monocytes Absolute Auto 700 /uL (0-900); Neutrophils Absolute Auto 4900 /uL (1500-7000); Neutrophils Percent Auto 63.8 % (50-75); Platelet Count 401 X10^3/uL (150-400); Red Cell Distribution Width 17.3 % (11.6-14.8); White Blood Cell Count 7.7 X10^3/uL (4.5-11.0)
[2023-10-27 09:49] LABS: Hemoglobin A1C% w Est Avg Glu 5.2 % (4.0-6.0)
[2023-10-27 10:15] LABS: Alanine Aminotransferase 14 IU/L (<35); Albumin 4.1 g/dL (3.5-5.0); Albumin Globulin Ratio 1.5 (1.0-2.8); Alkaline Phosphatase 64 U/L (38-126); Aspartate Aminotransferase 19 IU/L (14-36); BUN Creatinine Ratio 19.4 (6-22); Bilirubin Total 0.4 mg/dL (0.2-1.3); Blood Urea Nitrogen 14 mg/dL (7-17); Calcium 9.4 mg/dL (8.4-10.2); Carbon Dioxide 26 mmol/L (22-32); Chloride 108 mmol/L (98-107); Estimated Glomerular Filt Rate > 60 mL/min (>60); Globulin 2.8 g/dL (1.7-4.1); Glucose 96 mg/dL (70-100); HEMOLYSIS < 15 (0-50); Potassium 4.3 mmol/L (3.4-5.1); Sodium 140 mmol/L (137-145); Total Protein 6.9 g/dL (6.3-8.2)
[2023-10-27 10:40] LABS: TSH w/ Reflex to FT4 0.79 uIU/mL (0.47-4.68)
[2023-10-28 05:06] LABS: Apolipoprotein B 67 mg/dL (<90)
== END ==
PROVIDERS: Family Provider Family Medicine; PCP Family Medicine; Referring Provider Family Medicine; Visit Provider Family Medicine
DX: R79.89 Other specified abnormal findings of blood chemistry (principal); K80.20 Calculus of gallbladder without cholecystitis without obstruction; R53.83 Other fatigue; L65.9 Nonscarring hair loss, unspecified
CPT/HCPCS: 36415; 80053; 82172; 83036; 84443; 85025

== ENCOUNTER → 2024-05-24 08:38 | Outpatient (CLI) | payer OTHER, MEDICAID, SELFPAY ==
[2023-04-13 12:19] VITALS: BMI 40.6
[2024-05-24 09:15] LABS: Add Manual Diff / Slide Review NO; Basophils Absolute Auto 100 /uL (0-100); Basophils Percent Auto 1.2 % (0-2); Eosinophils Absolute Auto 100 /uL (0-450); Eosinophils Percent Auto 1.2 % (2-4); Hematocrit 41.5 % (36-46); Hemoglobin 14.1 g/dL (12.0-16.0); Lymphocytes Absolute Auto 1800 /uL (1100-4500); Lymphocytes Percent Auto 28.1 % (25-40); Mean Corpuscular HGB Conc 34.1 % (30-36); Mean Corpuscular Hemoglobin 32.5 PG (26-34); Mean Corpuscular Volume 95.2 fL (80-100); Monocytes Absolute Auto 600 /uL (0-900); Monocytes Percent Auto 8.8 % (3-14); Neutrophils Absolute Auto 3900 /uL (1500-7000); Neutrophils Percent Auto 60.7 % (50-75); Platelet Count 269 X10^3/uL (150-400); Red Blood Cell Count 4.36 X10^6/uL (4.0-5.2); Red Cell Distribution Width 13.3 % (11.6-14.8); White Blood Cell Count 6.4 X10^3/uL (4.5-11.0)
[2024-05-24 09:58] LABS: Cholesterol 153 mg/dL (140-199); HDL Cholesterol 49 mg/dL (40-60); LDL Cholesterol Calculated 91 mg/dL (<100); Triglycerides 63 mg/dL (35-150)
[2024-05-24 10:30] LABS: Ferritin 45 ng/mL (6-137)
[2024-05-24 11:38] LABS: HEMOLYSIS < 15 (0-50); Iron 87 ug/dL (37-170)
[2024-05-24 11:48] LABS: Percent Iron Saturation 24 % (15-50); Total Iron Binding Capacity 360 ug/dL (265-497); Transferrin 274 mg/dL (206-381)
== END ==
PROVIDERS: Family Provider Family Medicine; PCP Family Medicine; Referring Provider Family Medicine; Visit Provider Family Medicine
DX: R79.89 Other specified abnormal findings of blood chemistry (principal); K80.20 Calculus of gallbladder without cholecystitis without obstruction; R53.83 Other fatigue; D64.9 Anemia, unspecified; L65.9 Nonscarring hair loss, unspecified
CPT/HCPCS: 36415; 80061; 82728; 83540; 83550; 85025